=== PATIENT | male | born 1960 ===

== ENCOUNTER 2017-02-19 14:17 | Inpatient (IN) | payer MEDICAID, OTHER ==
[2017-02-19] MEDS ORDERED: Sodium Chloride 0.9% 1,000 ML IV STA (14:51)
[2017-02-19 15:19] LABS: BASO % 0.1 % (0.0-2.0); EOS % 0.2 % (0.0-4.0); HEMOGLOBIN 14.9 g/dL (12.0-18.0); LYMPH # 1.6 K/uL (1.0-4.3); LYMPH % 11.2 % (20.0-40.0); MEAN CELL VOLUME 94.5 fl (80.0-94.0); MEAN CORPUSCULAR HEMOGLOBIN 32.4 pg (27.0-31.0); MEAN CORPUSCULAR HGB CONC 34.3 g/dL (33.0-37.0); MEAN PLATELET VOLUME 8.4 fl (7.2-11.7); MONO # 0.8 K/uL (0.0-0.8); MONO % 5.8 % (0.0-10.0); NEUT # 11.6 K/uL (1.8-7.0); NEUT % 82.7 % (50.0-75.0); NRBC % 0.1 % (0.0-0.0); RBC 4.6 Mil/uL (4.40-5.90); RED CELL DISTRIBUTION WIDTH 13.2 % (11.5-14.5)
[2017-02-19 15:37] LABS: ALB/GLOB RATIO 1.2 (1.0-2.1); ALBUMIN 4.2 g/dL (3.5-5.0); ALT/SGPT 53 U/L (21-72); AST/SGOT 27 U/L (17-59); BLOOD UREA NITROGEN 19 mg/dl (9-20); CALCIUM 9.6 mg/dL (8.4-10.2); GFR AFRICAN-AMERICAN > 60; GFR NON-AFRICAN AMERICAN > 60
[2017-02-19] MEDS ORDERED: Sodium Chloride 0.9% 50 ML IV ONE (15:59)
[2017-02-19] MEDS ORDERED: Iohexol 300 100 ML IJ ONE (15:59)
--- NOTE | 2017-02-19 16:54 | ED PDOC ---
HPI: General Adult Time Seen by Provider: 02/19/17 14:32 Chief Complaint (Nursing): Hip Pain Chief Complaint (Provider): groin pain History Per: Patient, Family Additional Complaint(s): 56yo M in ED for c/o groin pain x 5 days with difficulty with urination-states that he has pain and dec in urination daily and with some pain with BM. Pt denies fever but admits to chills. Pt denies hematuira, blood in stool nausea vomiting. denies PSA testing or prostate exam denies back pain. surgical hx is removal of gallbladder. Past Medical History Reviewed: Historical Data, Nursing Documentation, Vital Signs Vital Signs: Last Vital Signs Temp 98.2 F 02/19/17 14:22 Pulse 88 02/19/17 16:57 Resp 14 02/19/17 16:57 BP 132/77 02/19/17 16:57 Pulse Ox 98 02/19/17 17:48 - Medical History PMH: No Chronic Diseases - Surgical History Surgical History: Cholecystectomy - Family History Family History: States: No Known Family Hx - Home Medications Home Medications: Ambulatory Orders Medication Instructions Recorded Diclofenac Sodium [Voltaren] 75 mg PO BID 02/19/17 tiZANidine [Zanaflex] 4 mg pe PO HS 02/19/17 - Allergies Allergies/Adverse Reactions: Allergies Allergy/AdvReac Type Severity Reaction Status Date / Time No Known Allergies Allergy Verified 02/19/17 14:22 Review of Systems ROS Statement: Except As Marked, All Systems Reviewed And Found Negative Constitutional: Positive for: Chills. Negative for: Fever Respiratory: Negative for: Cough, Shortness of Breath Gastrointestinal: Positive for: Abdominal Pain. Negative for: Nausea, Vomiting Genitourinary Male: Positive for: Dysuria Physical Exam - Reviewed Nursing Documentation Reviewed: Yes Vital Signs Reviewed: Yes - Physical Exam Appears: Positive for: Well, Non-toxic, No Acute Distress Skin: Positive for: Normal Color, Warm, DRY Cardiovascular/Chest: Positive for: Regular Rate, Rhythm Respiratory: Positive for: CNT, Normal Breath Sounds Gastrointestinal/Abdominal: Positive for: Normal Exam, Bowel Sounds, Soft. Negative for: Tenderness Back: Positive for: Normal Inspection. Negative for: L CVA Tenderness, R CVA Tenderness Rectal: Positive for: Rectal Tone Is: (intact), Tenderness (tender to pernial area, mass noted on palpation of perineal area. no enlarged prostate noted in rectum ). Negative for: Black Stool, Blood Streaked Stool, Hemorrhoids Extremity: Positive for: Normal ROM Neurologic/Psych: Positive for: Alert, Oriented - Laboratory Results Result Diagrams: 02/19/17 15:00 02/19/17 15:00 - ECG O2 Sat by Pulse Oximetry: 98 - Progress ED Course And Treament: pt given NS fluids, morphine for pain control and CT scan r/o prostate mass vs prostatitis. cbc/cmp CT scan: IMPRESSION: 1. An 8.5 x 3.5 x 3.7 cm fluid collection with subtle peripheral enhancement centered in the right side of the base of the penis and the adjacent perineum is most consistent with an abscess. Differential diagnosis also includes superimposed infection or inflammation of an underlying abnormality (e.g., lymphocele, congenital cyst). No air in the soft tissues to indicate necrotizing fasciitis. Mild surrounding fat stranding extends superiorly into the deep left hemipelvis to the sciatic notch and the mid to lower presacral space. 2. Moderate amount of gas and stool in the colon. 3. Diffuse fatty infiltration of the liver. 4. Additional non-acute findings as described above mary ellen made aware. urology consulted-Robert Manning consult placed as an order:Umberto Holland Hospitalist made aware-MD Kavita will accept pt Surgery consulted-residents made aware will come see pt. pt started on vancomycin/unaysn pt will get ABG with lactate due to elevated BS and ketones in urine. BS rise may be related to acute infection or newly dx DM. Medical Decision Making Medical Decision Making: PT meets sepsis criteria will be admitted for elevated BS and abscess. Disposition - Clinical Impression Clinical Impression: Perianal abscess - Patient ED Disposition Is Patient to be Admitted: Yes - Disposition Disposition Time: 17:48 Condition: FAIR Forms: [employer] (Slovak) - Pt Status Changed To: Hospital Disposition Of: Inpatient - Admit Certification Admit to Inpatient:: After my assessment, the patient will require hospitalization for at least two midnights. This is because of the severity of symptoms shown, intensity of services needed, and/or the medical risk in this patient being treated as an outpatient. - POA Present On Arrival: Poor Glycemic Control
[2017-02-19 17:05] LABS: URINE BILIRUBIN NEGATIVE (NEGATIVE); URINE BLOOD NEGATIVE (NEGATIVE); URINE CLARITY CLEAR (Clear); URINE COLOR YELLOW (YELLOW); URINE GLUCOSE (UA) >=500 mg/dL (Normal); URINE LEUKOCYTE ESTERASE NEG Leu/uL (Negative); URINE NITRATE NEGATIVE (NEGATIVE); URINE PROTEIN NEGATIVE (NEGATIVE); URINE UROBILINOGEN 0.2-1.0 mg/dL (0.2-1.0)
[2017-02-19] MEDS ORDERED: Ciprofloxacin 400mg/200ml D5W 400 MG/200 ML BAG IVPB STA (17:26)
[2017-02-19] MEDS ORDERED: metroNIDAZOLE 500mg/100ml NS 100 ML IVPB STA (17:26)
[2017-02-19] MEDS ORDERED: Ciprofloxacin 400mg/200ml D5W 0 MG/0 ML BAG IVPB ONE (17:36)
[2017-02-19] MEDS ORDERED: metroNIDAZOLE 500mg/100ml NS 0 ML IVPB ONE (17:36)
[2017-02-19] MEDS ORDERED: Ampicillin/Sulbactam 1.5 GM in Sodium Chloride 0.9% 100 ML IVPB STA (17:42)
[2017-02-19 17:45] LABS: ABG ALLEN TEST YES; ARTERIAL BLOOD GAS HCO3 23.6 mmol/L (21-28); ARTERIAL BLOOD GAS PCO2 34 mm/Hg (35-45); ARTERIAL BLOOD GAS PH 7.42 (7.35-7.45); ARTERIAL BLOOD GAS PO2 92 mm/Hg (80-100); ARTERIAL BLOOD GAS TCO2 23.1 mmol/L (22-28)
[2017-02-19] MEDS ORDERED: Vancomycin 1 g Inj ONE (17:45)
[2017-02-19] MEDS ORDERED: Piperacillin/Tazobact 3.375 GM in Sodium Chloride 0.9% 100 ML IVPB SCH (18:33)
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
[2017-02-19] MEDS ORDERED: Sodium Chloride 0.9% 1,000 ML IV SCH (18:45)
[2017-02-19] MEDS ORDERED: metroNIDAZOLE 500mg/100ml NS 100 ML IVPB SCH (18:45)
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
--- NOTE | 2017-02-19 20:33 | CP.PCM.PN ---
Subjective - Date & Time of Evaluation Date of Evaluation: 02/19/17 Time of Evaluation: 20:25 - Subjective Subjective: I D NOTE(INITIAL) WAS NOT INFORMED BY ER OF CONSULT THE HOSPITALIST() INFORMED ME OF CONSULT. DISCUSSED PATIENT AND CLINICAL SITUATION c HER. Rx c ZOSYN/FLAGYL/DOXYCYCLINE CHLAMYDIA/GC RNA ORDERED AWAIT ROUTINE CULTURES Objective - Vital Signs/Intake and Output Vital Signs (last 24 hours): Temp Pulse Resp BP Pulse Ox 98.9 F 84 20 176/95 H 99 02/19/17 19:41 02/19/17 19:41 02/19/17 19:41 02/19/17 19:41 02/19/17 19:41 - Medications Medications: Current Medications Doxycycline Hyclate 100 mg/ (Sodium Chloride) 100 mls @ 100 mls/hr IVPB Q12 [facility] Sodium Chloride (Sodium Chloride 0.9%) 1,000 mls @ 150 mls/hr IV .Q6H40M [facility] Stop: 02/20/17 18:44 Metronidazole (Flagyl 500mg/100ml Ns) 100 mls @ 100 mls/hr IVPB Q8 [facility] Piperacillin Sod/Tazobactam (Sod 3.375 gm/ Sodium Chloride) 100 mls @ 100 mls/ hr IVPB Q6 [facility] Insulin Human Lispro (Humalog) 0 units SC ACHS [facility] PRN Reason: Protocol Morphine Sulfate (Morphine) 4 mg IVP Q4 PRN PRN Reason: Pain, severe (8-10)
[2017-02-19] MEDS: Sodium Chloride 0.9% 1,000 ML IV SCH (21:01)
[2017-02-19] MEDS: Insulin Lispro (humaLOG) 100 Units/ml Inj SC SCH (23:14)
[2017-02-20] MEDS: Sodium Chloride 0.9% 1,000 ML IV SCH ×2 (02:25→09:05)
[2017-02-20] MEDS: Piperacillin/Tazobact 3.375 GM in Sodium Chloride 0.9% 100 ML IVPB SCH ×4 (04:44→21:48)
[2017-02-20 07:20] LABS: ALB/GLOB RATIO 1.2 (1.0-2.1); ALBUMIN 3.7 g/dL (3.5-5.0); ALT/SGPT 67 U/L (21-72); AST/SGOT 36 U/L (17-59); BLOOD UREA NITROGEN 18 mg/dl (9-20); CALCIUM 8.8 mg/dL (8.4-10.2); GFR AFRICAN-AMERICAN > 60; GFR NON-AFRICAN AMERICAN > 60
[2017-02-20 07:26] LABS: BASO % 0.2 % (0.0-2.0); EOS % 0.3 % (0.0-4.0); HEMOGLOBIN 13.3 g/dL (12.0-18.0); LYMPH # 1.3 K/uL (1.0-4.3); LYMPH % 11.3 % (20.0-40.0); MEAN CELL VOLUME 95.1 fl (80.0-94.0); MEAN CORPUSCULAR HEMOGLOBIN 32.1 pg (27.0-31.0); MEAN CORPUSCULAR HGB CONC 33.8 g/dL (33.0-37.0); MEAN PLATELET VOLUME 8.3 fl (7.2-11.7); MONO # 0.8 K/uL (0.0-0.8); MONO % 6.7 % (0.0-10.0); NEUT # 9.7 K/uL (1.8-7.0); NEUT % 81.5 % (50.0-75.0); RBC 4.14 Mil/uL (4.40-5.90); RED CELL DISTRIBUTION WIDTH 13.1 % (11.5-14.5); WHITE BLOOD COUNT 11.9 K/uL (4.8-10.8)
[2017-02-20 07:32] LABS: INR 1.3 (0.9-1.2); PARTIAL THROMBOPLASTIN TIME 29.5 Seconds (25.6-37.1); PROTHROMBIN TIME 13.7 Seconds (9.8-13.1)
--- NOTE | 2017-02-20 07:40 | CARD ---
APPROVED REPORT EKG Measurement Heart [id number] <Conclusion> Normal sinus rhythm Normal ECG
--- NOTE | 2017-02-20 08:48 | CT ---
PROCEDURE: CT Abdomen and Pelvis with contrast HISTORY: groin pain COMPARISON: None. TECHNIQUE: Contrast dose: 98 cc Omnipaque. Axial and reformatted coronal and sagittal CT images of the abdomen and pelvis were obtained after IV contrast administration. Radiation dose: Total exam DLP = 1313.86 mGy-cm. This CT exam was performed using one or more of the following dose reduction techniques: Automated exposure control, adjustment of the mA and/or kV according to patient size, and/or use of iterative reconstruction technique. FINDINGS: LOWER THORAX: Unremarkable. LIVER: Mild hepatic steatosis is noted. No gross lesion or ductal dilatation. GALLBLADDER AND BILE DUCTS: Status post cholecystectomy. PANCREAS: Unremarkable. No gross lesion or ductal dilatation. SPLEEN: Unremarkable. ADRENALS: Unremarkable. No mass. KIDNEYS AND URETERS: Unremarkable. No hydronephrosis. No solid mass. VASCULATURE: Unremarkable. No aortic aneurysm. BOWEL: Unremarkable. No obstruction. No gross mural thickening. APPENDIX: Normal appendix. PERITONEUM: Unremarkable. No free fluid. No free air. LYMPH NODES: Unremarkable. No enlarged lymph nodes. BLADDER: Unremarkable. REPRODUCTIVE: There is tubular shaped fluid collection at the left aspect of the base of the penis extending to the left perianal and left perineum measures approximately 8.5 x 3.5 x 3.7 centimeter. There is thin enhancing wall of this collection. The possibility of abscess formation should be considered. BONES: No acute fracture. OTHER FINDINGS: Fat stranding and possible soft tissue edema at the pre sacral region in the lower pelvis slightly more prominent in the left side. IMPRESSION: Fluid collection at the left aspect of the base of the penis extending to the adjacent perineum may represents abscess formation. Mild stranding and possible soft tissue swelling or edema at the pre sacral region in the lower aspect of the pelvis more prominent in the left side of uncertain etiology. No evidence of significant lymphadenopathy. Preliminary report was submitted by [facility].
[2017-02-20] MEDS: metroNIDAZOLE 500mg/100ml NS 100 ML IVPB SCH ×2 (08:52→16:26)
[2017-02-20] MEDS ORDERED: Chlorhexidine Gluconate 1 APPL/PKT TP ONE (09:46)
[2017-02-20] MEDS: Insulin Lispro (humaLOG) 100 Units/ml Inj SC SCH ×3 (11:30→21:47)
--- NOTE | 2017-02-20 11:37 | CP.PCM.PN ---
Subjective - Date & Time of Evaluation Date of Evaluation: 02/20/17 Time of Evaluation: 10:00 - Subjective Subjective: Patient was seen and evaluated at bedside, appeared to be in mild discomfort. Stated that the pain medication was helping relieve the pain, but otherwise he feels the same as before. Stated that he waiting for the abscess to be "cut out. " Pt was NPO for OR this morning. Denied chest pain, sob, abdominal pain, leg/ calf pain/swelling. Pt was taken to OR today, 50cc of fluid drained from abscess. Objective - Vital Signs/Intake and Output Vital Signs (last 24 hours): Temp Pulse Resp BP Pulse Ox 98.8 F 82 20 154/78 H 98 02/20/17 08:00 02/20/17 08:00 02/20/17 08:00 02/20/17 08:00 02/20/17 08:00 - Medications Medications: Current Medications Doxycycline Hyclate 100 mg/ (Sodium Chloride) 100 mls @ 100 mls/hr IVPB Q12 [facility] Last Admin: 02/20/17 08:53 Dose: 100 mls/hr Sodium Chloride (Sodium Chloride 0.9%) 1,000 mls @ 150 mls/hr IV .Q6H40M [facility] Stop: 02/20/17 18:44 Last Admin: 02/20/17 09:05 Dose: 150 mls/hr Piperacillin Sod/Tazobactam (Sod 3.375 gm/ Sodium Chloride) 100 mls @ 100 mls/ hr IVPB Q6 [facility] Last Admin: 02/20/17 09:00 Dose: 100 mls/hr Metronidazole (Flagyl 500mg/100ml Ns) 100 mls @ 100 mls/hr IVPB Q8 [facility] Last Admin: 02/20/17 08:52 Dose: 100 mls/hr Insulin Human Lispro (Humalog) 0 units SC ACHS [facility] PRN Reason: Protocol Last Admin: 02/19/17 23:14 Dose: Not Given Morphine Sulfate (Morphine) 4 mg IVP Q4 PRN PRN Reason: Pain, severe (8-10) Last Admin: 02/20/17 08:59 Dose: 4 mg - Labs Labs: 02/20/17 07:05 02/20/17 07:05 PT 13.7 Seconds (9.8-13.1) H 02/20/17 07:05 INR 1.3 (0.9-1.2) H 02/20/17 07:05 APTT 29.5 Seconds (25.6-37.1) 02/20/17 07:05 - Constitutional Appears: No Acute Distress, Other (mild discomfort) - Head Exam Head Exam: NORMAL INSPECTION - Eye Exam Eye Exam: EOMI, PERRL - ENT Exam ENT Exam: Mucous Membranes Moist - Respiratory Exam Respiratory Exam: Clear to Ausculation Bilateral, NORMAL BREATHING PATTERN - Cardiovascular Exam Cardiovascular Exam: REGULAR RHYTHM, +S1, +S2 - GI/Abdominal Exam GI & Abdominal Exam: Soft, Normal Bowel Sounds. absent: Tenderness - Exam Exam: absent: Scrotal Swelling External exam: Swelling Additional comments: perineal tenderness - Extremities Exam Extremities Exam: Normal Capillary Refill, Normal Inspection. absent: Calf Tenderness, Pedal Edema - Back Exam Back Exam: NORMAL INSPECTION - Neurological Exam Neurological Exam: Alert, Awake, Oriented x3 - Psychiatric Exam Psychiatric exam: Normal Affect, Normal Mood - Skin Skin Exam: Intact, Warm Assessment and Plan - Assessment and Plan (Free Text) Assessment: This is a 56 yo M with no known PMH who presented to the ED due to groin pain, and was found to have a perineal abscess on CT, as well as new onset type 2 DM. Surgery- OR today. Plan: 1. Sepsis due to perineal abscess/cellulitis -WBC on admission 14.0, today 11.9 -Heart rate on admission 102; has not been above 90 since then -Afebrile -Blood/urine culture: collected and pending -Urinalysis clean -ID consult: Dr. Holland recommended start IV zosyn, flagyl, doxycycline, and test for GC/Chlamydia 2. Perineal abscess/cellulitis, s/p I&D -CT: tubular shaped fluid collection at left aspect of base of the penis extending to the left perineal and left perineum, measures approximately 8.5x3.5x3.7 cm. There is thin enhancing wall in his collection. Possibility of abscess formation. -Urology consult- Dr. Manning stated this is a surgical case and recommended surgery consult -Surgery consult- Dr. Johansen- recommended to continue with IV antibiotics, make NPO and plan for surgery this am -Pain control with morphine -was NPO- for OR today -s/p I&D performed today- 50cc of fluid drained from perineal abscess, no drain in place, wound cultures sent 3. New onset Diabetes Mellitus, Type 2 -Accucheks ACHS -coverage scale -HbA1c 9.7 -Start glipizide 10mg PO in the morning -F/u lipid profile 4. DVT prophylaxis -SCDs for now -Start lovenox tomorrow
--- NOTE | 2017-02-20 11:46 | RAD ---
HISTORY: pre op eval COMPARISON: No prior. TECHNIQUE: Chest PA and lateral FINDINGS: LUNGS: No active pulmonary disease. PLEURA: No significant pleural effusion identified. No pneumothorax apparent. CARDIOVASCULAR: No radiographic findings to suggest acute or significant cardiovascular disease. OSSEOUS STRUCTURES: No significant abnormalities. VISUALIZED UPPER ABDOMEN: Normal. OTHER FINDINGS: None. IMPRESSION: No active disease.
[2017-02-20] MEDS ORDERED: Propofol 10 mg/ml Inj (20 ML) ONE (12:05)
[2017-02-20] MEDS ORDERED: Lidocaine 4% (Laryng-O-Jet) Kit MM ONE (12:07)
[2017-02-20] MEDS ORDERED: Dexamethasone 4 mg/1 ml ONE (12:07)
[2017-02-20] MEDS ORDERED: Morphine 4 MG/ML VIAL IVP STA (12:43)
[2017-02-20] MEDS ORDERED: Succinylcholine 200 mg/10 ml Inj IV ONE (13:29)
[2017-02-20] MEDS ORDERED: Lidocaine 1% Inj (20ml) ONE (13:30)
[2017-02-20] MEDS ORDERED: Bupivacaine 0.5% Inj(30mL) ONE (13:30)
--- NOTE | 2017-02-20 13:30 | CON ---
DATE: 02/20/2017 COMPREHENSIVE UROLOGIC CONSULTATION TIME OF CONSULTATION: Roughly 10.23 a.m. DIAGNOSIS: Perineal abscess. BRIEF HISTORY: The patient is a 56-year-old male from [place] who presents to [facility] ([facility] Emergency Room with complaint of some perineal pain. Abdominal pelvic CT in the ER on 02/19/2017 showed a tubular shaped fluid collection at the left aspect of the base of the penis extending to the left perianal and left perineum which measured about 8.5 x 3.5 x 3.7 cm. There was a thin enhancing wall of this collection. The possibility of abscess formation should be considered. Kidneys were normal. There was no hydronephrosis and no solid mass. The bladder was also unremarkable. The patient denies any prior history of any kidney disease or kidney stones. He has no history of any voiding problems. No dysuria, gross hematuria, renal colic, or abdominal pain. His only pain is in the perineum. He has no history of any sexual transmitted diseases. This swelling and pain that he had in the perineum, he has had for about 3 days. SOCIAL HISTORY: He consumes a very small amount of alcohol just socially. No tobacco use. ALLERGIES: NO KNOWN ALLERGIES TO ANY MEDICATION. FAMILY HISTORY: Noncontributory. PHYSICAL EXAMINATION: GENERAL: Today, the patient is well-developed, well-nourished, male, he is alert, he is oriented. HEENT: Grossly within normal limits. NECK: Supple. Thyroid not palpable. ABDOMEN: Soft, nondistended, nontender. No CVA tenderness, no suprapubic tenderness. GENITALIA: The patient is noncircumcised with a normal glans meatus without any rashes or lesions visualized. No penile plaques are palpated, no penile induration or masses are palpated or noted. His scrotum is completely normal. There is no indurations, no cellulitis, no scrotal masses. Testes are down bilaterally, nontender without any masses palpated. RECTAL: Normal rectal tone without fluctuance or masses. Prostate is average size, smooth, symmetrical, nontender without nodules or indurations with palpable median sulcus. Very difficult to palpate the mass in the perineum and currently on pain medications which includes IV morphine. The patient currently has no pain at this time, and he says he is markedly improved since his admission on IV antibiotics. There is no lesions visualized in the perineum or perianal area. The penis and scrotum clinically appear to be not involved at this time. LABORATORY DATA: The patient's laboratory evaluation on admission showed a WBC count of over 14,000 and currently he is on IV antibiotics. He remains afebrile. His temperature is 98.8, and his CBC shows a WBC count of 11.9 which is down from 14,000 on IV antibiotics. His hemoglobin is 13.3, hematocrit 39.4, and platelet count of 178,000. His BUN and creatinine are 18 and 0.7 respectively. His sodium is 138, potassium 3.9, chloride 104, CO2 is 21, glucose is 214. The patient is currently being also evaluated by Dr. Johansen, general surgery. Additional findings on the CAT scan also shows some fat stranding and possible soft tissue edema at the presacral region in the lower pelvis slightly more prominent on the left side. His urinalysis on 02/19/2017 showed the color was yellow, cloudy, it was clear, pH of 6.0, specific gravity 1.060, protein was negative, glucose was greater than 500, ketones were 20, blood nitrate bilirubin were all negative. Leukocyte esterase was negative. There was 1 rbc's per high-power field and less than 1 wbc's per high-power field indicating a relatively normal urinalysis. DIAGNOSTIC IMPRESSION: At this time is perineal abscess mostly on the left side, on CT. PLAN: For this patient is as per Dr. Johansen, general surgery. Observation regarding urology at this time. Valdo Manning MD [facility]
[2017-02-20] MEDS ORDERED: Lactated Ringer's 1,000 ML IV ONE ×2 (13:50→16:05)
[2017-02-20] MEDS ORDERED: Rocuronium 10 mg/ml (5 ml) ONE (14:06)
[2017-02-20] MEDS ORDERED: Morphine 1 mg/ml preservative-free Inj(Duramorph) ONE (14:10)
[2017-02-20] MEDS ORDERED: Desflurane Inhalation Anesthetic Liq (240 ml) ONE (14:27)
[2017-02-20] MEDS ORDERED: Neostigmine Methylsulfate 2 MG/2 ML ML IV ONE (14:27)
[2017-02-20] MEDS ORDERED: Neostigmine Methylsulfate 3mg/3ml Syringe IV ONE (14:27)
[2017-02-20] MEDS ORDERED: Lactated Ringer's 1,000 ML IV SCH (14:51)
[2017-02-20] MEDS ORDERED: HYDROmorphone 0.5 mg/0.5 ml ISec IVP PRN (14:51)
--- NOTE | 2017-02-20 14:51 | PCM.SURG1 ---
Surgeon's Initial Post Op Note - Surgeon's Notes Surgeon: Dr. [employer] Field Technician: Kamran Ratliff PGY 2, Mercedes PGY1 Type of Anesthesia: General Endo Pre-Operative Diagnosis: Perineal abscess R Operative Findings: R perineal abscess 50cc abscess Post-Operative Diagnosis: Same Operation Performed: Incision and drainage of R perineal abscess Specimen/Specimens Removed: abscess 50cc Estimated Blood Loss: EBL {In ML}: 5 Blood Products Given: N/A Drains Used: No Drains Post-Op Condition: Good Date of Surgery/Procedure: 02/20/17 Time of Surgery/Procedure: 14:51
--- NOTE | 2017-02-20 15:27 | OP ---
PREOPERATIVE DIAGNOSIS: Perianal abscess. POSTOPERATIVE DIAGNOSIS: Perianal abscess. PROCEDURE: Incision and drainage of the perianal abscess. SURGEON: Dr. Hardy. INGREDIENT MIXER: Dr. Ratliff. ANESTHESIA: General, endotracheal intubation. IV FLUIDS: Crystalloids. ESTIMATED BLOOD LOSS: 5 mL. INTRAOPERATIVE FINDINGS: Drained approximately 50 ms of purulent material. SPECIMEN: Wound cultures. BRIEF HISTORY: The patient is a very pleasant 56-year-old gentleman who presented to the hospital complaining of perineal pain and upon further investigation on a CAT scan the patient was found to have elevated white blood cell count as well as cath finding significant for perianal abscess. All the risks and benefits of the procedure were explained to the patient and with the patient having a full understanding of all the risks and benefits involved informed consent was obtained and the patient was taken to the operating room for above stated procedure. PROCEDURE: The patient was brought into the operating room and placed supine on operating table. After successful induction of anesthesia and successful endotracheal intubation by the anesthesia team, the patient was placed in a lithotomy position. Subsequent to that the patient's perianal area was prepped with Betadine and draped in a standard surgical fashion. Prior to the beginning of the procedure, a time-out was called in the room and everyone in the room were in agreement. Prior to the beginning of the procedure, digital rectal examination was performed and I could not appreciate any palpable masses. Subsequent to that using 15 blade scalpel knife approximately 2 cm incision was made right next to the anus at the area of the left buttocks and subsequent to that a purulent material was expressed. Wound cultures were obtained and then using blunt dissection with a finger all the loculations of the abscess cavity were broken down and we drained approximately 50 mL of purulent material. At that point in time, the abscess cavity was copiously irrigated with sterile saline and a fluid was suctioned out and abscess cavity was packed with 1 inch packing. At that point in time, the patient's perianal are was washed and dried and clean dressing of 4x4's and tape were applied to the incision site. The patient was successfully extubated by the anesthesia team, transferred to the stretcher and taken to the recovery room in a stable condition. At the end of the procedure all instrument counts, sponges, were correct. Kvng Hardy MD [facility] # [id number]
[2017-02-20] MEDS ORDERED: Piperacillin/Tazobact 3.375 gm Inj IVPB ONE (16:00)
--- NOTE | 2017-02-20 18:07 | CP.PCM.PN ---
Subjective - Date & Time of Evaluation Date of Evaluation: 02/20/17 Time of Evaluation: 18:00 - Subjective Subjective: I D NOTE PATIENT SEEN POST OP AWAIT TODAYS SURGICAL CULTURE RESULTS CONTINUE SAME RX UNTIL RESULTS ARE AVAILABLE FULL CONSULT DICTATED Objective - Vital Signs/Intake and Output Vital Signs (last 24 hours): Temp Pulse Resp BP Pulse Ox 97.9 F 84 20 137/82 97 02/20/17 16:20 02/20/17 17:16 02/20/17 16:20 02/20/17 17:16 02/20/17 16:20 Intake and Output: 02/20/17 02/20/17 06:59 18:59 Intake Total 800 Balance 800 - Medications Medications: Current Medications Glipizide (Glucotrol) 10 mg PO ACB [facility] Doxycycline Hyclate 100 mg/ (Sodium Chloride) 100 mls @ 100 mls/hr IVPB Q12 [facility] Last Admin: 02/20/17 08:53 Dose: 100 mls/hr Sodium Chloride (Sodium Chloride 0.9%) 1,000 mls @ 150 mls/hr IV .Q6H40M [facility] Stop: 02/20/17 18:44 Last Admin: 02/20/17 09:05 Dose: 150 mls/hr Piperacillin Sod/Tazobactam (Sod 3.375 gm/ Sodium Chloride) 100 mls @ 100 mls/ hr IVPB Q6 [facility] Last Admin: 02/20/17 16:27 Dose: Not Given Metronidazole (Flagyl 500mg/100ml Ns) 100 mls @ 100 mls/hr IVPB Q8 [facility] Last Admin: 02/20/17 16:26 Dose: 100 mls/hr Lactated Ringer's (Lactated Ringer's) 1,000 mls @ 100 mls/hr IV .Q10H [facility] Insulin Human Lispro (Humalog) 0 units SC ACHS [facility] PRN Reason: Protocol Last Admin: 02/19/17 23:14 Dose: Not Given Morphine Sulfate (Morphine) 4 mg IVP Q4 PRN PRN Reason: Pain, severe (8-10) Last Admin: 02/20/17 08:59 Dose: 4 mg Oxycodone/Acetaminophen (Percocet 5/325 Mg Tab) 2 tab PO Q4 PRN PRN Reason: Pain, moderate (4-7) Stop: 02/23/17 14:55 - Labs Labs: 02/20/17 07:05 02/20/17 07:05 PT 13.7 Seconds (9.8-13.1) H 02/20/17 07:05 INR 1.3 (0.9-1.2) H 02/20/17 07:05 APTT 29.5 Seconds (25.6-37.1) 02/20/17 07:05
[2017-02-21] MEDS: metroNIDAZOLE 500mg/100ml NS 100 ML IVPB SCH ×3 (00:07→16:12)
[2017-02-21] MEDS: Piperacillin/Tazobact 3.375 GM in Sodium Chloride 0.9% 100 ML IVPB SCH ×4 (03:08→22:00)
[2017-02-21] MEDS: Oxycodone/Acetaminophen 5/325 mg Tab PO PRN ×2 (05:46→20:18)
[2017-02-21 07:01] LABS: HEMOGLOBIN 12.1 g/dL (12.0-18.0); LYMPH % 9.5 % (20.0-40.0); MEAN CELL VOLUME 96.6 fl (80.0-94.0); MEAN CORPUSCULAR HEMOGLOBIN 32.6 pg (27.0-31.0); MEAN CORPUSCULAR HGB CONC 33.8 g/dL (33.0-37.0); MEAN PLATELET VOLUME 7.4 fl (7.2-11.7); MONO # 0.5 K/uL (0.0-0.8); MONO % 4.8 % (0.0-10.0); NEUT # 8.9 K/uL (1.8-7.0); NEUT % 85.7 % (50.0-75.0); PLATELET COUNT 171 K/uL (130-400); RED CELL DISTRIBUTION WIDTH 12.8 % (11.5-14.5); WHITE BLOOD COUNT 10.4 K/uL (4.8-10.8)
[2017-02-21 07:09] LABS: ALB/GLOB RATIO 1.1 (1.0-2.1); ALBUMIN 2.9 g/dL (3.5-5.0); ALT/SGPT 64 U/L (21-72); AST/SGOT 27 U/L (17-59); BLOOD UREA NITROGEN 22 mg/dl (9-20); CALCIUM 7.3 mg/dL (8.4-10.2); GFR AFRICAN-AMERICAN > 60; GFR NON-AFRICAN AMERICAN > 60; HDL CHOLESTEROL 27 MG/DL (30-70)
[2017-02-21 07:20] LABS: LDL CHOLESTEROL 68 mg/dL (0-129)
--- NOTE | 2017-02-21 07:48 | CP.PCM.PN ---
<Kamran Ratliff - Last Filed: 02/21/17 07:46> Subjective - Date & Time of Evaluation Date of Evaluation: 02/21/17 Time of Evaluation: 07:46 - Subjective Subjective: Surgery for Dr. Hardy Pt s&e. Pt had incision and drainage yesterday and tolerated it well. Denies F/C /N/V/D/CP/SOB. Tolerating diet. Pain improved. Packing removed today. + void, + amb Objective - Vital Signs/Intake and Output Vital Signs (last 24 hours): Temp Pulse Resp BP Pulse Ox 98 F 68 20 120/75 98 02/21/17 05:09 02/21/17 05:09 02/21/17 05:09 02/21/17 05:09 02/21/17 05:09 - Medications Medications: Current Medications Glipizide (Glucotrol) 10 mg PO ACB [facility] Last Admin: 02/21/17 06:46 Dose: 10 mg Doxycycline Hyclate 100 mg/ (Sodium Chloride) 100 mls @ 100 mls/hr IVPB Q12 [facility] Last Admin: 02/20/17 20:45 Dose: 100 mls/hr Piperacillin Sod/Tazobactam (Sod 3.375 gm/ Sodium Chloride) 100 mls @ 100 mls/ hr IVPB Q6 [facility] Last Admin: 02/21/17 03:08 Dose: 100 mls/hr Metronidazole (Flagyl 500mg/100ml Ns) 100 mls @ 100 mls/hr IVPB Q8 [facility] Last Admin: 02/21/17 00:07 Dose: 100 mls/hr Insulin Human Lispro (Humalog) 0 units SC ACHS [facility] PRN Reason: Protocol Last Admin: 02/20/17 21:47 Dose: Not Given Morphine Sulfate (Morphine) 4 mg IVP Q4 PRN PRN Reason: Pain, severe (8-10) Last Admin: 02/21/17 07:24 Dose: 4 mg Oxycodone/Acetaminophen (Percocet 5/325 Mg Tab) 2 tab PO Q4 PRN PRN Reason: Pain, moderate (4-7) Stop: 02/23/17 14:55 Last Admin: 02/21/17 05:46 Dose: 2 tab - Labs Labs: 02/21/17 06:00 02/21/17 06:00 PT 13.7 Seconds (9.8-13.1) H 02/20/17 07:05 INR 1.3 (0.9-1.2) H 02/20/17 07:05 APTT 29.5 Seconds (25.6-37.1) 02/20/17 07:05 - Constitutional Appears: No Acute Distress - Head Exam Head Exam: ATRAUMATIC, NORMAL INSPECTION, NORMOCEPHALIC - Eye Exam Eye Exam: EOMI, Normal appearance, PERRL Pupil Exam: NORMAL ACCOMODATION, PERRL - ENT Exam ENT Exam: Mucous Membranes Moist, Normal Exam - Neck Exam Neck Exam: Full ROM, Normal Inspection. absent: Lymphadenopathy - Respiratory Exam Respiratory Exam: Clear to Ausculation Bilateral, NORMAL BREATHING PATTERN - Cardiovascular Exam Cardiovascular Exam: REGULAR RHYTHM, +S1, +S2. absent: Murmur - GI/Abdominal Exam GI & Abdominal Exam: Soft, Normal Bowel Sounds. absent: Tenderness - Rectal Exam Rectal Exam: NORMAL INSPECTION - Exam Exam: Circumcision, Scrotal Swelling. absent: Testicular Tenderness, Uretheral Discharge External exam: Swelling Additional comments: Scrotum has 3cm incision. 5cm deep. Draining seropulurent fluids. MIld erythema. Swelling improved. - Extremities Exam Extremities Exam: Full ROM, Normal Capillary Refill, Normal Inspection. absent : Joint Swelling, Pedal Edema - Back Exam Back Exam: NORMAL INSPECTION - Neurological Exam Neurological Exam: Alert, Awake, CN II-XII Intact, Normal Gait, Oriented x3 - Psychiatric Exam Psychiatric exam: Normal Affect, Normal Mood - Skin Skin Exam: Erythema, Warm Assessment and Plan - Assessment and Plan (Free Text) Assessment: Incision and drainage of R scrotum/perineum POD 1 -Ok to DC for surgical standpoint -F/u at Dr. Hardy 's office in 1 week -Blood sugar control - OK to take shower tomorrow. Will DW attending . <Kvng Hardy - Last Filed: 02/21/17 10:20> Subjective - Date & Time of Evaluation Time of Evaluation: 10:00 - Subjective Subjective: Patient was seen and examined at the bedside. Objective - Vital Signs/Intake and Output Vital Signs (last 24 hours): Temp Pulse Resp BP Pulse Ox 98 F 61 20 142/78 98 02/21/17 08:00 02/21/17 09:00 02/21/17 08:00 02/21/17 08:00 02/21/17 08:00 - Medications Medications: Current Medications Glipizide (Glucotrol) 10 mg PO ACB [facility] Last Admin: 02/21/17 06:46 Dose: 10 mg Doxycycline Hyclate 100 mg/ (Sodium Chloride) 100 mls @ 100 mls/hr IVPB Q12 [facility] Last Admin: 02/21/17 08:21 Dose: 100 mls/hr Piperacillin Sod/Tazobactam (Sod 3.375 gm/ Sodium Chloride) 100 mls @ 100 mls/ hr IVPB Q6 [facility] Last Admin: 02/21/17 03:08 Dose: 100 mls/hr Metronidazole (Flagyl 500mg/100ml Ns) 100 mls @ 100 mls/hr IVPB Q8 [facility] Last Admin: 02/21/17 08:21 Dose: 100 mls/hr Insulin Human Lispro (Humalog) 0 units SC ACHS [facility] PRN Reason: Protocol Last Admin: 02/21/17 08:22 Dose: 2 units Morphine Sulfate (Morphine) 4 mg IVP Q4 PRN PRN Reason: Pain, severe (8-10) Last Admin: 02/21/17 07:24 Dose: 4 mg Oxycodone/Acetaminophen (Percocet 5/325 Mg Tab) 2 tab PO Q4 PRN PRN Reason: Pain, moderate (4-7) Stop: 02/23/17 14:55 Last Admin: 02/21/17 05:46 Dose: 2 tab - Labs Labs: 02/21/17 06:00 02/21/17 06:00 PT 13.7 Seconds (9.8-13.1) H 02/20/17 07:05 INR 1.3 (0.9-1.2) H 02/20/17 07:05 APTT 29.5 Seconds (25.6-37.1) 02/20/17 07:05 Assessment and Plan - Assessment and Plan (Free Text) Plan: - Continue IV antibiotics as per ID - Pain control - Will follow - repeat labs in am
[2017-02-21] MEDS: Insulin Lispro (humaLOG) 100 Units/ml Inj SC SCH ×4 (08:22→22:57)
[2017-02-21] MEDS ORDERED: metroNIDAZOLE 500mg/100ml NS 100 ML IVPB SCH (09:00)
[2017-02-21 09:07] LABS: ANISOCYTOSIS SLIGHT; BANDS 3 % (0-2); LARGE PLATELETS PRESENT; LYMPHOCYTE 10 % (20-50); MONOCYTE 4 % (0-10); NEUTROPHIL 83 % (42-75); PLATELET ESTIMATE NORMAL (NORMAL); TOTAL CELLS COUNTED 100
--- NOTE | 2017-02-21 09:22 | CP.PCM.PN ---
Subjective - Date & Time of Evaluation Date of Evaluation: 02/21/17 Time of Evaluation: 08:30 - Subjective Subjective: Patient was seen and evaluated in bed, appears to be in no acute distress, denies any events overnight. Pt had I&D yesterday, 50cc fluid drained and packing was placed. As per surgery, packing was removed today. Dressing in place. Pt was able to urinate without difficulty. Pt denies new onset pain, chest pain, shortness of breath, nausea, vomiting, leg/calf pain/swelling. Objective - Vital Signs/Intake and Output Vital Signs (last 24 hours): Temp Pulse Resp BP Pulse Ox 98 F 62 20 142/78 98 02/21/17 08:00 02/21/17 08:00 02/21/17 08:00 02/21/17 08:00 02/21/17 08:00 - Medications Medications: Current Medications Glipizide (Glucotrol) 10 mg PO ACB [facility] Last Admin: 02/21/17 06:46 Dose: 10 mg Doxycycline Hyclate 100 mg/ (Sodium Chloride) 100 mls @ 100 mls/hr IVPB Q12 [facility] Last Admin: 02/21/17 08:21 Dose: 100 mls/hr Piperacillin Sod/Tazobactam (Sod 3.375 gm/ Sodium Chloride) 100 mls @ 100 mls/ hr IVPB Q6 [facility] Last Admin: 02/21/17 03:08 Dose: 100 mls/hr Metronidazole (Flagyl 500mg/100ml Ns) 100 mls @ 100 mls/hr IVPB Q8 [facility] Last Admin: 02/21/17 08:21 Dose: 100 mls/hr Insulin Human Lispro (Humalog) 0 units SC ACHS [facility] PRN Reason: Protocol Last Admin: 02/21/17 08:22 Dose: 2 units Morphine Sulfate (Morphine) 4 mg IVP Q4 PRN PRN Reason: Pain, severe (8-10) Last Admin: 02/21/17 07:24 Dose: 4 mg Oxycodone/Acetaminophen (Percocet 5/325 Mg Tab) 2 tab PO Q4 PRN PRN Reason: Pain, moderate (4-7) Stop: 02/23/17 14:55 Last Admin: 02/21/17 05:46 Dose: 2 tab - Labs Labs: 02/21/17 06:00 02/21/17 06:00 PT 13.7 Seconds (9.8-13.1) H 02/20/17 07:05 INR 1.3 (0.9-1.2) H 02/20/17 07:05 APTT 29.5 Seconds (25.6-37.1) 02/20/17 07:05 - Constitutional Appears: Non-toxic, No Acute Distress - Eye Exam Eye Exam: EOMI, Normal appearance, PERRL - ENT Exam ENT Exam: Mucous Membranes Moist - Respiratory Exam Respiratory Exam: Clear to Ausculation Bilateral, NORMAL BREATHING PATTERN - Cardiovascular Exam Cardiovascular Exam: REGULAR RHYTHM, +S1, +S2 - GI/Abdominal Exam GI & Abdominal Exam: Soft, Normal Bowel Sounds. absent: Tenderness - Exam Additional comments: dressing in place over scrotal area and perenium - Extremities Exam Extremities Exam: Normal Capillary Refill, Normal Inspection. absent: Calf Tenderness, Pedal Edema - Back Exam Back Exam: NORMAL INSPECTION - Psychiatric Exam Psychiatric exam: Normal Mood - Skin Skin Exam: Dry, Normal Color, Warm Assessment and Plan - Assessment and Plan (Free Text) Assessment: This is a 56 yo M with new onset DM2 (unknown prior to admission) who presented to ED due to groin pain and swelling and was found to have perineal abscess; pt is s/p I&D where 50cc of fluid was removed, POD 1. Plan: 1. Sepsis due to perineal abscess/cellulitis -Improving -WBC trending down; leukocytosis resolved. 14.0 on admission, 11.9 yesterday, 10.4 today -Afebrile, stable vital signs (BP, HR) -Blood/urine culture: collected and pending -Urinalysis clean -ID consult: Dr. Holland recommended start IV zosyn, flagyl, doxycycline, and test for GC/Chlamydia; await wound culture results 2. Perineal abscess/cellulitis, s/p I&D -CT: tubular shaped fluid collection at left aspect of base of the penis extending to the left perineal and left perineum, measures approximately 8.5x3.5x3.7 cm. There is thin enhancing wall in his collection. Possibility of abscess formation. -Urology consult- Dr. Manning stated this is a surgical case and recommended surgery consult -Surgery consult- -s/p I&D, POD 1. 50cc of fluid drained from perineal abscess, wound cultures sent -packing removed today, dressing changed -Pain control with percocet or morphine PRN 3. Dehydration with azotemia -BUN 22 -Hydration -Monitor BUN 4. New onset Diabetes Mellitus, Type 2 -Accucheks ACHS -coverage scale -HbA1c 9.7 -Continue glipizide 10mg PO Q AM -Diabetic diet -Lipid profile only significant for low HDL at 27. total 118, LDL 68; recommend diet 5. DVT prophylaxis -SCDs 6. Dispo: plan for d/c tomorrow with PO antibiotics
[2017-02-21] MEDS ORDERED: Sodium Chloride 0.9% 1,000 ML IV SCH (14:45)
[2017-02-22] MEDS: metroNIDAZOLE 500mg/100ml NS 100 ML IVPB SCH ×2 (00:11→08:05)
[2017-02-22] MEDS: Piperacillin/Tazobact 3.375 GM in Sodium Chloride 0.9% 100 ML IVPB SCH ×4 (03:18→21:11)
[2017-02-22] MEDS: Oxycodone/Acetaminophen 5/325 mg Tab PO PRN ×2 (03:23→20:18)
[2017-02-22 06:25] LABS: BASO % 0.2 % (0.0-2.0); EOS # 0.1 K/uL (0.0-0.7); EOS % 0.5 % (0.0-4.0); HEMOGLOBIN 12.6 g/dL (12.0-18.0); LYMPH # 1.9 K/uL (1.0-4.3); LYMPH % 17.3 % (20.0-40.0); MEAN CORPUSCULAR HEMOGLOBIN 32.6 pg (27.0-31.0); MEAN CORPUSCULAR HGB CONC 34.4 g/dL (33.0-37.0); MEAN PLATELET VOLUME 8.1 fl (7.2-11.7); MONO # 0.7 K/uL (0.0-0.8); MONO % 6.7 % (0.0-10.0); NEUT # 8.1 K/uL (1.8-7.0); NEUT % 75.3 % (50.0-75.0); NRBC % 0.1 % (0.0-0.0); RBC 3.85 Mil/uL (4.40-5.90); RED CELL DISTRIBUTION WIDTH 12.9 % (11.5-14.5); WHITE BLOOD COUNT 10.7 K/uL (4.8-10.8)
[2017-02-22 06:29] LABS: BLOOD UREA NITROGEN 19 mg/dl (9-20); CALCIUM 8.2 mg/dL (8.4-10.2); GFR AFRICAN-AMERICAN > 60; GFR NON-AFRICAN AMERICAN > 60
--- NOTE | 2017-02-22 07:31 | CP.PCM.PN ---
Subjective - Date & Time of Evaluation Date of Evaluation: 02/22/17 Time of Evaluation: 07:29 - Subjective Subjective: Surgery for Dr. Hardy Pt s&e. PRASANNA. Denies F/C/N/V/D/CPS?OB. Pain controlled. + amb. + tolerating diet. Objective - Vital Signs/Intake and Output Vital Signs (last 24 hours): Temp Pulse Resp BP Pulse Ox 98.1 F 69 20 128/75 98 02/22/17 04:59 02/22/17 04:59 02/22/17 04:59 02/22/17 04:59 02/22/17 04:59 - Medications Medications: Current Medications Glipizide (Glucotrol) 10 mg PO ACB [facility] Last Admin: 02/21/17 06:46 Dose: 10 mg Doxycycline Hyclate 100 mg/ (Sodium Chloride) 100 mls @ 100 mls/hr IVPB Q12 [facility] Last Admin: 02/21/17 20:20 Dose: 100 mls/hr Piperacillin Sod/Tazobactam (Sod 3.375 gm/ Sodium Chloride) 100 mls @ 100 mls/ hr IVPB Q6 [facility] Last Admin: 02/22/17 03:18 Dose: 100 mls/hr Metronidazole (Flagyl 500mg/100ml Ns) 100 mls @ 100 mls/hr IVPB Q8 [facility] Last Admin: 02/22/17 00:11 Dose: 100 mls/hr Sodium Chloride (Sodium Chloride 0.9%) 1,000 mls @ 100 mls/hr IV .Q10H [facility] Stop: 02/22/17 14:39 Last Admin: 02/21/17 16:11 Dose: 100 mls/hr Insulin Human Lispro (Humalog) 0 units SC ACHS [facility] PRN Reason: Protocol Last Admin: 02/21/17 22:57 Dose: Not Given Morphine Sulfate (Morphine) 4 mg IVP Q4 PRN PRN Reason: Pain, severe (8-10) Last Admin: 02/21/17 07:24 Dose: 4 mg Oxycodone/Acetaminophen (Percocet 5/325 Mg Tab) 2 tab PO Q4 PRN PRN Reason: Pain, moderate (4-7) Stop: 02/23/17 14:55 Last Admin: 02/22/17 03:23 Dose: 2 tab - Labs Labs: 02/22/17 05:00 02/22/17 05:00 PT 13.7 Seconds (9.8-13.1) H 02/20/17 07:05 INR 1.3 (0.9-1.2) H 02/20/17 07:05 APTT 29.5 Seconds (25.6-37.1) 02/20/17 07:05 - Constitutional Appears: No Acute Distress - Head Exam Head Exam: ATRAUMATIC, NORMAL INSPECTION, NORMOCEPHALIC - Eye Exam Eye Exam: EOMI, Normal appearance, PERRL Pupil Exam: NORMAL ACCOMODATION, PERRL - ENT Exam ENT Exam: Mucous Membranes Moist, Normal Exam - Neck Exam Neck Exam: Full ROM, Normal Inspection. absent: Lymphadenopathy - Respiratory Exam Respiratory Exam: Clear to Ausculation Bilateral, NORMAL BREATHING PATTERN - Cardiovascular Exam Cardiovascular Exam: REGULAR RHYTHM, +S1, +S2. absent: Murmur - GI/Abdominal Exam GI & Abdominal Exam: Soft, Normal Bowel Sounds. absent: Distended, Tenderness - Rectal Exam Rectal Exam: absent: Black Stool, Bloody Stool, Hemorrhoids, Fecal Impaction Additional comments: R perineal area 3cm long 4 cm deep incision open. Minimal SS drainage. dressing changed. Mild TTP - Exam Exam: NORMAL INSPECTION - Extremities Exam Extremities Exam: Full ROM, Normal Capillary Refill, Normal Inspection. absent : Joint Swelling, Pedal Edema - Back Exam Back Exam: NORMAL INSPECTION - Neurological Exam Neurological Exam: Alert, Awake, CN II-XII Intact, Normal Gait, Oriented x3 - Psychiatric Exam Psychiatric exam: Normal Affect, Normal Mood - Skin Skin Exam: Dry, Intact, Normal Color, Warm Assessment and Plan - Assessment and Plan (Free Text) Assessment: Incision and drainage of R scrotum/perineum POD 2 : improving No lelukocytosis Afebrile -Ok to DC for surgical standpoint -F/u at Dr. Hardy 's office in 1 week after DC -Blood sugar control - OK to take shower. -Wound culture growing G - johny. -ABX per ID - We will follow Will DW attending .
[2017-02-22] MEDS: Insulin Lispro (humaLOG) 100 Units/ml Inj SC SCH ×4 (08:06→22:00)
--- NOTE | 2017-02-22 09:03 | CP.PCM.DIS ---
Provider - Provider Date of Admission: 02/19/17 17:47 Attending physician: Edwin Solano MD Primary care physician: none Consults: General Surgery Infectious Disease Urology Time Spent in preparation of Discharge (in minutes): 30 Diagnosis - Discharge Diagnosis (1) Abscess or cellulitis of perineum Status: Acute Comment: s/p I&D (2) Sepsis Status: Resolved Hospital Course - Lab Results Lab Results: Micro Results 02/20/17 14:41 Rectum Gram Stain - Final 02/20/17 14:41 Rectum Wound Culture - Final Klebsiella Pneumoniae Ssp Pneu 02/20/17 14:41 Rectum Gram Stain - Final 02/20/17 14:41 Rectum Wound Culture - Final Klebsiella Pneumoniae Ssp Pneu 02/19/17 18:30 Blood-Venous Blood Culture - Preliminary NO GROWTH AFTER 48 HOURS 02/19/17 17:56 Blood-Venous Blood Culture - Preliminary NO GROWTH AFTER 48 HOURS Most Recent Lab Values WBC 10.7 K/uL (4.8-10.8) 02/22/17 05:00 RBC 3.85 Mil/uL (4.40-5.90) L 02/22/17 05:00 Hgb 12.6 g/dL (12.0-18.0) 02/22/17 05:00 Hct 36.6 % (35.0-51.0) 02/22/17 05:00 MCV 95.0 fl (80.0-94.0) H 02/22/17 05:00 MCH 32.6 pg (27.0-31.0) H 02/22/17 05:00 MCHC 34.4 g/dL (33.0-37.0) 02/22/17 05:00 RDW 12.9 % (11.5-14.5) 02/22/17 05:00 Plt Count 194 K/uL (130-400) 02/22/17 05:00 MPV 8.1 fl (7.2-11.7) 02/22/17 05:00 Neut % (Auto) 75.3 % (50.0-75.0) H 02/22/17 05:00 Lymph % (Auto) 17.3 % (20.0-40.0) L 02/22/17 05:00 Teller % (Auto) 6.7 % (0.0-10.0) 02/22/17 05:00 Eos % (Auto) 0.5 % (0.0-4.0) 02/22/17 05:00 Baso % (Auto) 0.2 % (0.0-2.0) 02/22/17 05:00 Neut # 8.1 K/uL (1.8-7.0) H 02/22/17 05:00 Lymph # 1.9 K/uL (1.0-4.3) 02/22/17 05:00 Teller # 0.7 K/uL (0.0-0.8) 02/22/17 05:00 Eos # 0.1 K/uL (0.0-0.7) 02/22/17 05:00 Baso # 0.0 K/uL (0.0-0.2) 02/22/17 05:00 Neutrophils % (Manual) 83 % (42-75) H 02/21/17 06:00 Band Neutrophils % 3 % (0-2) H 02/21/17 06:00 Lymphocytes % (Manual) 10 % (20-50) L 02/21/17 06:00 Monocytes % (Manual) 4 % (0-10) 02/21/17 06:00 Platelet Estimate Normal (NORMAL) 02/21/17 06:00 Large Platelets Present 02/21/17 06:00 Anisocytosis (manual) Slight 02/21/17 06:00 Macrocytosis (manual) Slight 02/21/17 06:00 PT 13.7 Seconds (9.8-13.1) H 02/20/17 07:05 INR 1.3 (0.9-1.2) H 02/20/17 07:05 APTT 29.5 Seconds (25.6-37.1) 02/20/17 07:05 pCO2 34 mm/Hg (35-45) L 02/19/17 17:42 pO2 92 mm/Hg (80-100) 02/19/17 17:42 HCO3 23.6 mmol/L (21-28) 02/19/17 17:42 ABG pH 7.42 (7.35-7.45) 02/19/17 17:42 ABG Total CO2 23.1 mmol/L (22-28) 02/19/17 17:42 ABG O2 Saturation 100.0 % (95-98) H 02/19/17 17:42 ABG Base Excess -1.7 mmol/L (-2.0-3.0) 02/19/17 17:42 Thomas Test Yes 02/19/17 17:42 ABG Potassium 3.8 mmol/L (3.6-5.2) 02/19/17 17:42 A-a O2 Difference 15.0 mm/Hg 02/19/17 17:42 Sodium 134.0 mmol/L (132-148) 02/19/17 17:42 Chloride 101.0 mmol/L (98-107) 02/19/17 17:42 Glucose 275 mg/dL (75-110) H 02/19/17 17:42 Lactate 1.2 mmol/L (0.7-2.1) 02/19/17 17:42 FiO2 21.0 % 02/19/17 17:42 Sodium 137 mmol/l (132-148) 02/22/17 05:00 Potassium 3.9 MMOL/L (3.6-5.0) 02/22/17 05:00 Chloride 106 mmol/L (98-107) 02/22/17 05:00 Carbon Dioxide 25 mmol/L (22-30) 02/22/17 05:00 Anion Gap 10 (10-20) 02/22/17 05:00 BUN 19 mg/dl (9-20) 02/22/17 05:00 Creatinine 0.8 mg/dL (0.8-1.5) 02/22/17 05:00 Est GFR ( Amer) > 60 02/22/17 05:00 Est GFR (Non-Af Amer) > 60 02/22/17 05:00 POC Glucose (mg/dL) 162 mg/dL (65-110) H 02/22/17 05:43 Random Glucose 165 mg/dL (75-110) H 02/22/17 05:00 Hemoglobin A1c 9.7 % (4.2-6.5) H 02/20/17 07:05 Lactic Acid 2.0 MMOL/L (0.7-2.1) 02/19/17 19:45 Calcium 8.2 mg/dL (8.4-10.2) L 02/22/17 05:00 Total Bilirubin 1.2 mg/dl (0.2-1.3) 02/21/17 06:00 AST 27 U/L (17-59) 02/21/17 06:00 ALT 64 U/L (21-72) 02/21/17 06:00 Alkaline Phosphatase 105 U/L (38-126) 02/21/17 06:00 Troponin I < 0.0120 ng/mL (0.00-0.120) 02/19/17 15:00 Total Protein 5.6 G/DL (6.3-8.2) L 02/21/17 06:00 Albumin 2.9 g/dL (3.5-5.0) L D 02/21/17 06:00 Globulin 2.7 gm/dL (2.2-3.9) 02/21/17 06:00 Albumin/Globulin Ratio 1.1 (1.0-2.1) 02/21/17 06:00 Triglycerides 83 mg/DL (0-149) 02/21/17 06:00 Cholesterol 118 mg/dL (0-199) 02/21/17 06:00 LDL Cholesterol Direct 68 mg/dL (0-129) 02/21/17 06:00 HDL Cholesterol 27 MG/DL (30-70) L 02/21/17 06:00 Arterial Blood Potassium 3.8 mmol/L (3.6-5.2) 02/19/17 17:42 Urine Color Yellow (YELLOW) 02/19/17 16:50 Urine Clarity Clear (Clear) 02/19/17 16:50 Urine pH 6.0 (5.0-8.0) 02/19/17 16:50 Ur Specific Tyro > 1.060 (1.003-1.030) H 02/19/17 16:50 Urine Protein Negative mg/dL (NEGATIVE) 02/19/17 16:50 Urine Glucose (UA) >=500 mg/dL (Normal) 02/19/17 16:50 Urine Ketones 20 mg/dL (NEGATIVE) 02/19/17 16:50 Urine Blood Negative (NEGATIVE) 02/19/17 16:50 Urine Nitrate Negative (NEGATIVE) 02/19/17 16:50 Urine Bilirubin Negative (NEGATIVE) 02/19/17 16:50 Urine Urobilinogen 0.2-1.0 mg/dL (0.2-1.0) 02/19/17 16:50 Ur Leukocyte Esterase Neg Karina/uL (Negative) 02/19/17 16:50 Urine RBC (Auto) 1 /hpf (0-3) 02/19/17 16:50 Urine Microscopic WBC < 1 /hpf (0-5) 02/19/17 16:50 Discharge Exam - Head Exam Head Exam: ATRAUMATIC, NORMAL INSPECTION, NORMOCEPHALIC Discharge Plan - Follow Up Plan Condition: FAIR Disposition: HOME/ ROUTINE Instructions: Cellulitis (DC), Cellulitis (GEN), Abscess (GEN)
--- NOTE | 2017-02-22 09:21 | CP.PCM.PN ---
<Dinah Knapp - Last Filed: 02/22/17 14:43> Subjective - Date & Time of Evaluation Date of Evaluation: 02/22/17 Time of Evaluation: 08:30 - Subjective Subjective: Patient seen and evaluated at bedside; no acute events overnight. POD2, s/p I&D of perineal abscess, packing was removed, dressing in place over perineal incision. Patient able to urinate and have BMs. Pt denies new onset pain, chest pain, shortness of breath, nausea, vomiting, leg/calf pain/swelling. Objective - Vital Signs/Intake and Output Vital Signs (last 24 hours): Temp Pulse Resp BP Pulse Ox 98.4 F 67 20 158/95 H 100 02/22/17 08:00 02/22/17 08:00 02/22/17 08:00 02/22/17 08:00 02/22/17 08:00 - Medications Medications: Current Medications Glipizide (Glucotrol) 10 mg PO ACB [facility] Last Admin: 02/22/17 08:06 Dose: 10 mg Piperacillin Sod/Tazobactam (Sod 3.375 gm/ Sodium Chloride) 100 mls @ 100 mls/ hr IVPB Q6 [facility] Last Admin: 02/22/17 09:01 Dose: 100 mls/hr Metronidazole (Flagyl 500mg/100ml Ns) 100 mls @ 100 mls/hr IVPB Q8 [facility] Last Admin: 02/22/17 08:05 Dose: 100 mls/hr Sodium Chloride (Sodium Chloride 0.9%) 1,000 mls @ 100 mls/hr IV .Q10H [facility] Stop: 02/22/17 14:39 Last Admin: 02/21/17 16:11 Dose: 100 mls/hr Insulin Human Lispro (Humalog) 0 units SC ACHS [facility] PRN Reason: Protocol Last Admin: 02/22/17 08:06 Dose: 1 units Morphine Sulfate (Morphine) 4 mg IVP Q4 PRN PRN Reason: Pain, severe (8-10) Last Admin: 02/21/17 07:24 Dose: 4 mg Oxycodone/Acetaminophen (Percocet 5/325 Mg Tab) 2 tab PO Q4 PRN PRN Reason: Pain, moderate (4-7) Stop: 02/23/17 14:55 Last Admin: 02/22/17 03:23 Dose: 2 tab - Labs Labs: 02/22/17 05:00 02/22/17 05:00 PT 13.7 Seconds (9.8-13.1) H 02/20/17 07:05 INR 1.3 (0.9-1.2) H 02/20/17 07:05 APTT 29.5 Seconds (25.6-37.1) 02/20/17 07:05 - Constitutional Appears: Non-toxic, No Acute Distress - Eye Exam Eye Exam: EOMI, Normal appearance, PERRL - ENT Exam ENT Exam: Mucous Membranes Moist - Respiratory Exam Respiratory Exam: Clear to Ausculation Bilateral, NORMAL BREATHING PATTERN. absent: Wheezes, Respiratory Distress - Cardiovascular Exam Cardiovascular Exam: REGULAR RHYTHM, +S1, +S2 - GI/Abdominal Exam GI & Abdominal Exam: Soft, Normal Bowel Sounds - Exam Additional comments: dressing in place over perenium - Extremities Exam Extremities Exam: Normal Inspection. absent: Calf Tenderness - Back Exam Back Exam: NORMAL INSPECTION - Neurological Exam Neurological Exam: Alert, Awake, Oriented x3 - Psychiatric Exam Psychiatric exam: Normal Mood - Skin Skin Exam: Normal Color, Warm Assessment and Plan - Assessment and Plan (Free Text) Assessment: This is a 56 yo M with new onset DM2 (unknown prior to admission) who presented to ED due to groin pain and swelling and was found to have perineal abscess; pt is s/p I&D where 50cc of fluid was removed, POD 2. Plan: 1. Perineal abscess/cellulitis, s/p I&D -CT: tubular shaped fluid collection at left aspect of base of the penis extending to the left perineal and left perineum, measures approximately 8.5x3.5x3.7 cm. There is thin enhancing wall in his collection. Possibility of abscess formation. -Urology consult- Dr. Manning stated this is a surgical case and recommended surgery consult -Surgery consult- -s/p I&D, POD 2. 50cc of fluid drained from perineal abscess -packing removed yesterday, dressing changed -wound culture positive for Klebsiella pneumoniae spp- as per ID, continue IV antibiotics -f/u in clinic -Continue with zosyn, flagyl -Pain control with percocet or morphine PRN 2. New onset Diabetes Mellitus, Type 2 -Accucheks ACHS -coverage scale -HbA1c 9.7 -Continue glipizide 10mg PO Q AM -Diabetic diet -Lipid profile only significant for low HDL at 27. total 118, LDL 68; recommend diet -f/u with outpatient provider on discharge 3. Sepsis due to perineal abscess/cellulitis -Resolved -WBC trending down; leukocytosis resolved, today 10.7 -Afebrile, stable vital signs (BP, HR) -Blood culture no growth -Urinalysis clean -ID consult: Dr. Holland recommended continue IV antibiotics, ordered GC/[place] testing 4. Dehydration with azotemia -improving,BUN 19 today -Hydration -Monitor BUN 5. DVT prophylaxis -KENNAs <Elida Phillips - Last Filed: 02/22/17 14:58> Objective - Vital Signs/Intake and Output Vital Signs (last 24 hours): Temp Pulse Resp BP Pulse Ox 98.4 F 62 18 161/90 H 100 02/22/17 12:00 02/22/17 12:00 02/22/17 12:00 02/22/17 12:00 02/22/17 12:00 - Medications Medications: Current Medications Enoxaparin Sodium (Lovenox) 40 mg SC DAILY [facility] PRN Reason: Protocol Glipizide (Glucotrol) 10 mg PO ACB [facility] Last Admin: 02/22/17 08:06 Dose: 10 mg Piperacillin Sod/Tazobactam (Sod 3.375 gm/ Sodium Chloride) 100 mls @ 100 mls/ hr IVPB Q6 [facility] Last Admin: 02/22/17 09:01 Dose: 100 mls/hr Insulin Human Lispro (Humalog) 0 units SC [facility] PRN Reason: Protocol Last Admin: 02/22/17 12:22 Dose: Not Given Metronidazole (Flagyl) 500 mg PO Q8 [facility] Morphine Sulfate (Morphine) 4 mg IVP Q4 PRN PRN Reason: Pain, severe (8-10) Last Admin: 02/21/17 07:24 Dose: 4 mg Oxycodone/Acetaminophen (Percocet 5/325 Mg Tab) 2 tab PO Q4 PRN PRN Reason: Pain, moderate (4-7) Stop: 02/23/17 14:55 Last Admin: 02/22/17 03:23 Dose: 2 tab - Labs Labs: 02/22/17 05:00 02/22/17 05:00 PT 13.7 Seconds (9.8-13.1) H 02/20/17 07:05 INR 1.3 (0.9-1.2) H 02/20/17 07:05 APTT 29.5 Seconds (25.6-37.1) 02/20/17 07:05 Assessment and Plan (1) Sepsis Status: Resolved (2) Abscess or cellulitis of perineum Status: Acute (3) New onset type 2 diabetes mellitus Status: Acute (4) DVT prophylaxis Status: Acute Attending/Attestation - Attestation I have personally seen and examined this patient.: Yes I have fully participated in the care of the patient.: Yes I have reviewed all pertinent clinical information, including history, physical exam and plan: Yes Notes (Text): Pt continues to improve. No fever. Leukocytosis resolved. Discussed case with Dr Holland - rec to continue IV abx given that pt had severe perineal abscess and is a diabetic. Rec also to d/c IV Doxycycline. Wound c/s : Klebsiellla A/P: Sepsis sec to Perineal Absces and Celluitis s/p Incision and drainage New Onset DM type II HTN - cont IV Zosyn and , Flagyl changed to PO ( back order) , d/c Doxy - start Diovan - cont Glipizide
[2017-02-22] MEDS ORDERED: Enoxaparin 40 mg Syringe SC STA (12:05)
[2017-02-23] MEDS: Piperacillin/Tazobact 3.375 GM in Sodium Chloride 0.9% 100 ML IVPB SCH ×3 (03:56→15:14)
[2017-02-23] MEDS: Insulin Lispro (humaLOG) 100 Units/ml Inj SC SCH ×3 (06:36→17:09)
[2017-02-23 08:12] VITALS: RESP 20
[2017-02-23] MEDS ORDERED: Enoxaparin 40 mg Syringe SC SCH (09:00)
[2017-02-23 12:35] VITALS: O2SAT 98
--- NOTE | 2017-02-23 12:42 | CP.PCM.DIS ---
<Dinah Knapp - Last Filed: 02/23/17 16:19> Provider - Provider Date of Admission: 02/19/17 17:47 Attending physician: Edwin Solano MD Primary care physician: lulu Consults: Infectious Disease General Surgery Urology Time Spent in preparation of Discharge (in minutes): 30 Diagnosis - Discharge Diagnosis (1) Abscess or cellulitis of perineum Status: Acute Comment: s/p I&D (2) New onset type 2 diabetes mellitus Status: Acute Comment: started on Glucotrol (glipizide) (3) Sepsis Status: Resolved (4) Hypertension Status: Acute Comment: started on Diovan (Valsartan) Hospital Course - Lab Results Lab Results: Micro Results 02/20/17 14:41 Rectum Gram Stain - Final 02/20/17 14:41 Rectum Wound Culture - Final Klebsiella Pneumoniae Ssp Pneu Streptococcus Viridans 02/20/17 14:41 Rectum Gram Stain - Final 02/20/17 14:41 Rectum Wound Culture - Final Klebsiella Pneumoniae Ssp Pneu Streptococcus Viridans 02/19/17 18:30 Blood-Venous Blood Culture - Preliminary NO GROWTH AFTER 3 DAYS 02/19/17 17:56 Blood-Venous Blood Culture - Preliminary NO GROWTH AFTER 3 DAYS 02/19/17 23:30 Urine Urine Culture - Final Gram Positive Cory Most Recent Lab Values WBC 10.7 K/uL (4.8-10.8) 02/22/17 05:00 RBC 3.85 Mil/uL (4.40-5.90) L 02/22/17 05:00 Hgb 12.6 g/dL (12.0-18.0) 02/22/17 05:00 Hct 36.6 % (35.0-51.0) 02/22/17 05:00 MCV 95.0 fl (80.0-94.0) H 02/22/17 05:00 MCH 32.6 pg (27.0-31.0) H 02/22/17 05:00 MCHC 34.4 g/dL (33.0-37.0) 02/22/17 05:00 RDW 12.9 % (11.5-14.5) 02/22/17 05:00 Plt Count 194 K/uL (130-400) 02/22/17 05:00 MPV 8.1 fl (7.2-11.7) 02/22/17 05:00 Neut % (Auto) 75.3 % (50.0-75.0) H 02/22/17 05:00 Lymph % (Auto) 17.3 % (20.0-40.0) L 02/22/17 05:00 [place] % (Auto) 6.7 % (0.0-10.0) 02/22/17 05:00 Eos % (Auto) 0.5 % (0.0-4.0) 02/22/17 05:00 Baso % (Auto) 0.2 % (0.0-2.0) 02/22/17 05:00 Neut # 8.1 K/uL (1.8-7.0) H 02/22/17 05:00 Lymph # 1.9 K/uL (1.0-4.3) 02/22/17 05:00 [place] # 0.7 K/uL (0.0-0.8) 02/22/17 05:00 Eos # 0.1 K/uL (0.0-0.7) 02/22/17 05:00 Baso # 0.0 K/uL (0.0-0.2) 02/22/17 05:00 Neutrophils % (Manual) 83 % (42-75) H 02/21/17 06:00 Band Neutrophils % 3 % (0-2) H 02/21/17 06:00 Lymphocytes % (Manual) 10 % (20-50) L 02/21/17 06:00 Monocytes % (Manual) 4 % (0-10) 02/21/17 06:00 Platelet Estimate Normal (NORMAL) 02/21/17 06:00 Large Platelets Present 02/21/17 06:00 Anisocytosis (manual) Slight 02/21/17 06:00 Macrocytosis (manual) Slight 02/21/17 06:00 PT 13.7 Seconds (9.8-13.1) H 02/20/17 07:05 INR 1.3 (0.9-1.2) H 02/20/17 07:05 APTT 29.5 Seconds (25.6-37.1) 02/20/17 07:05 pCO2 34 mm/Hg (35-45) L 02/19/17 17:42 pO2 92 mm/Hg (80-100) 02/19/17 17:42 HCO3 23.6 mmol/L (21-28) 02/19/17 17:42 ABG pH 7.42 (7.35-7.45) 02/19/17 17:42 ABG Total CO2 23.1 mmol/L (22-28) 02/19/17 17:42 ABG O2 Saturation 100.0 % (95-98) H 02/19/17 17:42 ABG Base Excess -1.7 mmol/L (-2.0-3.0) 02/19/17 17:42 Thomas Test Yes 02/19/17 17:42 ABG Potassium 3.8 mmol/L (3.6-5.2) 02/19/17 17:42 A-a O2 Difference 15.0 mm/Hg 02/19/17 17:42 Sodium 134.0 mmol/L (132-148) 02/19/17 17:42 Chloride 101.0 mmol/L (98-107) 02/19/17 17:42 Glucose 275 mg/dL (75-110) H 02/19/17 17:42 Lactate 1.2 mmol/L (0.7-2.1) 02/19/17 17:42 FiO2 21.0 % 02/19/17 17:42 Sodium 137 mmol/l (132-148) 02/22/17 05:00 Potassium 3.9 MMOL/L (3.6-5.0) 02/22/17 05:00 Chloride 106 mmol/L (98-107) 02/22/17 05:00 Carbon Dioxide 25 mmol/L (22-30) 02/22/17 05:00 Anion Gap 10 (10-20) 02/22/17 05:00 BUN 19 mg/dl (9-20) 02/22/17 05:00 Creatinine 0.8 mg/dL (0.8-1.5) 02/22/17 05:00 Est GFR ( Amer) > 60 02/22/17 05:00 Est GFR (Non-Af Amer) > 60 02/22/17 05:00 POC Glucose (mg/dL) 184 mg/dL (65-110) H 02/23/17 05:18 Random Glucose 165 mg/dL (75-110) H 02/22/17 05:00 Hemoglobin A1c 9.7 % (4.2-6.5) H 02/20/17 07:05 Lactic Acid 2.0 MMOL/L (0.7-2.1) 02/19/17 19:45 Calcium 8.2 mg/dL (8.4-10.2) L 02/22/17 05:00 Total Bilirubin 1.2 mg/dl (0.2-1.3) 02/21/17 06:00 AST 27 U/L (17-59) 02/21/17 06:00 ALT 64 U/L (21-72) 02/21/17 06:00 Alkaline Phosphatase 105 U/L (38-126) 02/21/17 06:00 Troponin I < 0.0120 ng/mL (0.00-0.120) 02/19/17 15:00 Total Protein 5.6 G/DL (6.3-8.2) L 02/21/17 06:00 Albumin 2.9 g/dL (3.5-5.0) L D 02/21/17 06:00 Globulin 2.7 gm/dL (2.2-3.9) 02/21/17 06:00 Albumin/Globulin Ratio 1.1 (1.0-2.1) 02/21/17 06:00 Triglycerides 83 mg/DL (0-149) 02/21/17 06:00 Cholesterol 118 mg/dL (0-199) 02/21/17 06:00 LDL Cholesterol Direct 68 mg/dL (0-129) 02/21/17 06:00 HDL Cholesterol 27 MG/DL (30-70) L 02/21/17 06:00 Arterial Blood Potassium 3.8 mmol/L (3.6-5.2) 02/19/17 17:42 Urine Color Yellow (YELLOW) 02/19/17 16:50 Urine Clarity Clear (Clear) 02/19/17 16:50 Urine pH 6.0 (5.0-8.0) 02/19/17 16:50 Ur Specific [place] > 1.060 (1.003-1.030) H 02/19/17 16:50 Urine Protein Negative mg/dL (NEGATIVE) 02/19/17 16:50 Urine Glucose (UA) >=500 mg/dL (Normal) 02/19/17 16:50 Urine Ketones 20 mg/dL (NEGATIVE) 02/19/17 16:50 Urine Blood Negative (NEGATIVE) 02/19/17 16:50 Urine Nitrate Negative (NEGATIVE) 02/19/17 16:50 Urine Bilirubin Negative (NEGATIVE) 02/19/17 16:50 Urine Urobilinogen 0.2-1.0 mg/dL (0.2-1.0) 02/19/17 16:50 Ur Leukocyte Esterase Neg Karina/uL (Negative) 02/19/17 16:50 Urine RBC (Auto) 1 /hpf (0-3) 02/19/17 16:50 Urine Microscopic WBC < 1 /hpf (0-5) 02/19/17 16:50 - Hospital Course Hospital Course: Pt is a 56 yo M with no known medical history on admission who presented to the hospital due to 6/10 pain and swelling in the groin x8 days that had worsened. CT showed perineal abscess, and labs showed leukocytosis, random glucose was 346. Blood and urine were collected and sent for culture. Infectious disease, urology,and general surgery were consulted; pt was started on zosyn, flagyl, and doxycycline, as well as glipizide for blood sugar control, morphine for severe pain control, SCD for deep vein thrombosis prophylaxis.Urology consult- stated this was a surgical case. Pt underwent I&D by general surgery, during which 50cc of purulent fluid was removed and fluid was sent for wound culture, and packing was put in place and a dressing was put in place; pt tolerated the procedure well. On POD1, packing was removed, only dressing was remained. Pt's leukocytosis resolved, WBC trended down to normal range. Pt had several elevated BP measurements, so valsartan was started as well. Would culture came back positive for Klebsiella pneumoniae spp and Streptococcus viridans, urine culture positive for gram positive rods. As per ID , doxycycline was d/c, and pt remained on IV abx for one more day until he was cleared for discharge on PO abx by ID. - Date & Time of H&P Date of H&P: 02/19/17 Time of H&P: 18:41 Discharge Exam - Head Exam Head Exam: ATRAUMATIC, NORMAL INSPECTION, NORMOCEPHALIC - Eye Exam Eye Exam: EOMI, Normal appearance - ENT Exam ENT Exam: Mucous Membranes Moist - Respiratory Exam Respiratory Exam: Clear to PA & Lateral, NORMAL BREATHING PATTERN, UNREMARKABLE - Cardiovascular Exam Cardiovascular Exam: REGULAR RHYTHM, +S1, +S2 - GI/Abdominal Exam GI & Abdominal Exam: Normal Bowel Sounds, Soft - Exam Additional comments: incision visible, dressing over perenium in place - Extremities Exam Extremities exam: normal capillary refill, normal inspection - Back Exam Back exam: NORMAL INSPECTION - Neurological Exam Neurological exam: Alert, Oriented x3 - Psychiatric Exam Psychiatric exam: Normal Mood - Skin Skin Exam: Dry, Normal Color, Warm Discharge Plan - Discharge Medications Prescriptions: Cefuroxime Axetil [Cefuroxime] 500 mg PO Q12 #28 tablet GlipiZIDE [Glucotrol] 10 mg PO ACB #60 tab Lactobacillus Acidophilus [Bacid Acidophilus] 1 cap PO BID #30 cap oxyCODONE/Acetaminophen [Percocet 5/325 mg Tab] 1 tab PO Q6 PRN #20 tab PRN Reason: Pain, Moderate (4-7) Valsartan [Diovan] 80 mg PO DAILY #30 tab - Follow Up Plan Condition: GOOD Disposition: HOME/ ROUTINE Instructions: Cellulitis (DC), Cellulitis (GEN), Abscess (GEN) Additional Instructions: appt [facility] for outpatient clinic in [address] Hardy in 1 wk Referrals: [facility] [Outside] Kvng Hardy MD [Staff Provider] - <Yumi PhillipsElidaabby Camacho - Last Filed: 02/23/17 16:57> Provider - Provider Date of Admission: 02/19/17 17:47 Attending physician: Edwin Solano MD Diagnosis - Discharge Diagnosis (1) Sepsis Status: Resolved (2) Abscess or cellulitis of perineum Status: Acute (3) New onset type 2 diabetes mellitus Status: Acute (4) DVT prophylaxis Status: Acute Hospital Course - Lab Results Lab Results: Micro Results 02/20/17 14:41 Rectum Gram Stain - Final 02/20/17 14:41 Rectum Wound Culture - Final Klebsiella Pneumoniae Ssp Pneu Streptococcus Viridans 02/20/17 14:41 Rectum Gram Stain - Final 02/20/17 14:41 Rectum Wound Culture - Final Klebsiella Pneumoniae Ssp Pneu Streptococcus Viridans 02/19/17 18:30 Blood-Venous Blood Culture - Preliminary NO GROWTH AFTER 3 DAYS 02/19/17 17:56 Blood-Venous Blood Culture - Preliminary NO GROWTH AFTER 3 DAYS 02/19/17 23:30 Urine Urine Culture - Final Gram Positive Cory Most Recent Lab Values WBC 10.7 K/uL (4.8-10.8) 02/22/17 05:00 RBC 3.85 Mil/uL (4.40-5.90) L 02/22/17 05:00 Hgb 12.6 g/dL (12.0-18.0) 02/22/17 05:00 Hct 36.6 % (35.0-51.0) 02/22/17 05:00 MCV 95.0 fl (80.0-94.0) H 02/22/17 05:00 MCH 32.6 pg (27.0-31.0) H 02/22/17 05:00 MCHC 34.4 g/dL (33.0-37.0) 02/22/17 05:00 RDW 12.9 % (11.5-14.5) 02/22/17 05:00 Plt Count 194 K/uL (130-400) 02/22/17 05:00 MPV 8.1 fl (7.2-11.7) 02/22/17 05:00 Neut % (Auto) 75.3 % (50.0-75.0) H 02/22/17 05:00 Lymph % (Auto) 17.3 % (20.0-40.0) L 02/22/17 05:00 [place] % (Auto) 6.7 % (0.0-10.0) 02/22/17 05:00 Eos % (Auto) 0.5 % (0.0-4.0) 02/22/17 05:00 Baso % (Auto) 0.2 % (0.0-2.0) 02/22/17 05:00 Neut # 8.1 K/uL (1.8-7.0) H 02/22/17 05:00 Lymph # 1.9 K/uL (1.0-4.3) 02/22/17 05:00 [place] # 0.7 K/uL (0.0-0.8) 02/22/17 05:00 Eos # 0.1 K/uL (0.0-0.7) 02/22/17 05:00 Baso # 0.0 K/uL (0.0-0.2) 02/22/17 05:00 Neutrophils % (Manual) 83 % (42-75) H 02/21/17 06:00 Band Neutrophils % 3 % (0-2) H 02/21/17 06:00 Lymphocytes % (Manual) 10 % (20-50) L 02/21/17 06:00 Monocytes % (Manual) 4 % (0-10) 02/21/17 06:00 Platelet Estimate Normal (NORMAL) 02/21/17 06:00 Large Platelets Present 02/21/17 06:00 Anisocytosis (manual) Slight 02/21/17 06:00 Macrocytosis (manual) Slight 02/21/17 06:00 PT 13.7 Seconds (9.8-13.1) H 02/20/17 07:05 INR 1.3 (0.9-1.2) H 02/20/17 07:05 APTT 29.5 Seconds (25.6-37.1) 02/20/17 07:05 pCO2 34 mm/Hg (35-45) L 02/19/17 17:42 pO2 92 mm/Hg (80-100) 02/19/17 17:42 HCO3 23.6 mmol/L (21-28) 02/19/17 17:42 ABG pH 7.42 (7.35-7.45) 02/19/17 17:42 ABG Total CO2 23.1 mmol/L (22-28) 02/19/17 17:42 ABG O2 Saturation 100.0 % (95-98) H 02/19/17 17:42 ABG Base Excess -1.7 mmol/L (-2.0-3.0) 02/19/17 17:42 Thomas Test Yes 02/19/17 17:42 ABG Potassium 3.8 mmol/L (3.6-5.2) 02/19/17 17:42 A-a O2 Difference 15.0 mm/Hg 02/19/17 17:42 Sodium 134.0 mmol/L (132-148) 02/19/17 17:42 Chloride 101.0 mmol/L (98-107) 02/19/17 17:42 Glucose 275 mg/dL (75-110) H 02/19/17 17:42 Lactate 1.2 mmol/L (0.7-2.1) 02/19/17 17:42 FiO2 21.0 % 02/19/17 17:42 Sodium 137 mmol/l (132-148) 02/22/17 05:00 Potassium 3.9 MMOL/L (3.6-5.0) 02/22/17 05:00 Chloride 106 mmol/L (98-107) 02/22/17 05:00 Carbon Dioxide 25 mmol/L (22-30) 02/22/17 05:00 Anion Gap 10 (10-20) 02/22/17 05:00 BUN 19 mg/dl (9-20) 02/22/17 05:00 Creatinine 0.8 mg/dL (0.8-1.5) 02/22/17 05:00 Est GFR ( Amer) > 60 02/22/17 05:00 Est GFR (Non-Af Amer) > 60 02/22/17 05:00 POC Glucose (mg/dL) 235 mg/dL (65-110) H 02/23/17 11:31 Random Glucose 165 mg/dL (75-110) H 02/22/17 05:00 Hemoglobin A1c 9.7 % (4.2-6.5) H 02/20/17 07:05 Lactic Acid 2.0 MMOL/L (0.7-2.1) 02/19/17 19:45 Calcium 8.2 mg/dL (8.4-10.2) L 02/22/17 05:00 Total Bilirubin 1.2 mg/dl (0.2-1.3) 02/21/17 06:00 AST 27 U/L (17-59) 02/21/17 06:00 ALT 64 U/L (21-72) 02/21/17 06:00 Alkaline Phosphatase 105 U/L (38-126) 02/21/17 06:00 Troponin I < 0.0120 ng/mL (0.00-0.120) 02/19/17 15:00 Total Protein 5.6 G/DL (6.3-8.2) L 02/21/17 06:00 Albumin 2.9 g/dL (3.5-5.0) L D 02/21/17 06:00 Globulin 2.7 gm/dL (2.2-3.9) 02/21/17 06:00 Albumin/Globulin Ratio 1.1 (1.0-2.1) 02/21/17 06:00 Triglycerides 83 mg/DL (0-149) 02/21/17 06:00 Cholesterol 118 mg/dL (0-199) 02/21/17 06:00 LDL Cholesterol Direct 68 mg/dL (0-129) 02/21/17 06:00 HDL Cholesterol 27 MG/DL (30-70) L 02/21/17 06:00 Arterial Blood Potassium 3.8 mmol/L (3.6-5.2) 02/19/17 17:42 Urine Color Yellow (YELLOW) 02/19/17 16:50 Urine Clarity Clear (Clear) 02/19/17 16:50 Urine pH 6.0 (5.0-8.0) 02/19/17 16:50 Ur Specific [place] > 1.060 (1.003-1.030) H 02/19/17 16:50 Urine Protein Negative mg/dL (NEGATIVE) 02/19/17 16:50 Urine Glucose (UA) >=500 mg/dL (Normal) 02/19/17 16:50 Urine Ketones 20 mg/dL (NEGATIVE) 02/19/17 16:50 Urine Blood Negative (NEGATIVE) 02/19/17 16:50 Urine Nitrate Negative (NEGATIVE) 02/19/17 16:50 Urine Bilirubin Negative (NEGATIVE) 02/19/17 16:50 Urine Urobilinogen 0.2-1.0 mg/dL (0.2-1.0) 02/19/17 16:50 Ur Leukocyte Esterase Neg Karina/uL (Negative) 02/19/17 16:50 Urine RBC (Auto) 1 /hpf (0-3) 02/19/17 16:50 Urine Microscopic WBC < 1 /hpf (0-5) 02/19/17 16:50 C.trachomatis RNA (TMA) Not detected (Not Detected) 02/20/17 15:46 N.gonorrhoeae RNA (TMA) Not detected (Not Detected) 02/20/17 15:46 Attending/Attestation - Attestation I have personally seen and examined this patient.: Yes I have fully participated in the care of the patient.: Yes I have reviewed all pertinent clinical information, including history, physical exam and plan: Yes
--- NOTE | 2017-02-23 13:22 | CP.PCM.PN ---
Subjective - Date & Time of Evaluation Date of Evaluation: 02/23/17 Time of Evaluation: 13:19 - Subjective Subjective: General Surgery - Dr. Hardy Pt S&E. SAMEER. Pt denies any complaints. He states site of I&D/Former abscess is greatly improved and he denies any discomfort to the area. He is ambulating , tolerating regular diet, having BMs. No F/C, SOB/CP. Objective - Vital Signs/Intake and Output Vital Signs (last 24 hours): Temp Pulse Resp BP Pulse Ox 99 F 89 20 145/95 H 98 02/23/17 12:00 02/23/17 12:00 02/23/17 12:00 02/23/17 12:00 02/23/17 12:00 Intake and Output: 02/23/17 02/23/17 06:59 18:59 Intake Total 1800 Output Total 800 Balance 1000 - Medications Medications: Current Medications Enoxaparin Sodium (Lovenox) 40 mg SC DAILY ETHAN PRN Reason: Protocol Last Admin: 02/23/17 09:03 Dose: 40 mg Glipizide (Glucotrol) 10 mg PO ACB [facility] Last Admin: 02/23/17 09:02 Dose: 10 mg Piperacillin Sod/Tazobactam (Sod 3.375 gm/ Sodium Chloride) 100 mls @ 100 mls/ hr IVPB Q6 [facility] Last Admin: 02/23/17 09:03 Dose: 100 mls/hr Insulin Human Lispro (Humalog) 0 units SC ACHS ETHAN PRN Reason: Protocol Last Admin: 02/23/17 12:13 Dose: 2 units Metronidazole (Flagyl) 500 mg PO Q8 [facility] Last Admin: 02/23/17 09:02 Dose: 500 mg Morphine Sulfate (Morphine) 4 mg IVP Q4 PRN PRN Reason: Pain, severe (8-10) Last Admin: 02/21/17 07:24 Dose: 4 mg Oxycodone/Acetaminophen (Percocet 5/325 Mg Tab) 2 tab PO Q4 PRN PRN Reason: Pain, moderate (4-7) Stop: 02/23/17 14:55 Last Admin: 02/22/17 20:18 Dose: 2 tab Valsartan (Diovan) 80 mg PO DAILY [facility] Last Admin: 02/23/17 09:01 Dose: 80 mg - Labs Labs: 02/22/17 05:00 02/22/17 05:00 PT 13.7 Seconds (9.8-13.1) H 02/20/17 07:05 INR 1.3 (0.9-1.2) H 02/20/17 07:05 APTT 29.5 Seconds (25.6-37.1) 02/20/17 07:05 - Constitutional Appears: No Acute Distress - Head Exam Head Exam: ATRAUMATIC, NORMAL INSPECTION, NORMOCEPHALIC - Eye Exam Eye Exam: Normal appearance - ENT Exam ENT Exam: Mucous Membranes Moist - Respiratory Exam Respiratory Exam: NORMAL BREATHING PATTERN. absent: Respiratory Distress - Cardiovascular Exam Cardiovascular Exam: REGULAR RHYTHM - GI/Abdominal Exam GI & Abdominal Exam: Soft. absent: Tenderness - Rectal Exam Additional comments: S/P I&D, dressing with some drainage, healing well, cellulitis improved, dressing changed with clean 4x4 gauze - Neurological Exam Neurological Exam: Alert, Oriented x3 - Psychiatric Exam Psychiatric exam: Normal Affect, Normal Mood - Skin Skin Exam: Dry, Intact Assessment and Plan - Assessment and Plan (Free Text) Assessment: 56yo M s/p I&D of R perineal abscess, POD #3 -Clear for DC from surgical standpoint -Continue PO ABx as per GI -Continue daily dressing change with clean 4x4 gauze after bath/shower at home. -Make appt. to f/u with Dr. Hardy in 2 weeks Patient seen and discussed with Dr. Hayley Vasquez PGY3
[2017-02-23 16:16] VITALS: BP 147/93; PULSE 112; TEMP 97.5
== END 2017-02-23 17:47 | disposition home or self-care (01) | DRG 872 ==
LOC: H.ER 14:17 → H.ERHOLD 17:47 → H.TEL 18:55
PROVIDERS: ADMIT Hospitalist; ATTEND Hospitalist
PROC: 0D9Q0ZX Drainage of Anus, Open Approach, Diagnostic (ICD-10-PCS; principal; 2017-02-20 12:30)
DX: A41.9 Sepsis, unspecified organism (principal); L02.215 Cutaneous abscess of perineum; L03.315 Cellulitis of perineum; K61.0 Anal abscess; B95.4 Other streptococcus as the cause of diseases classified elsewhere; B96.1 Klebsiella pneumoniae [K. pneumoniae] as the cause of diseases classified elsewhere; E11.9 Type 2 diabetes mellitus without complications; E86.0 Dehydration; I10 Essential (primary) hypertension; M17.9 Osteoarthritis of knee, unspecified; F17.210 Nicotine dependence, cigarettes, uncomplicated

== ENCOUNTER 2018-01-18 07:37 | Emergency (ER) | payer SELFPAY ==
[2018-01-18 07:46] VITALS: BMI 39.1
--- NOTE | 2018-01-18 08:00 | ED PDOC ---
HPI: Dental Pain/Injury Time Seen by Provider: 01/18/18 07:48 Chief Complaint (Nursing): Dental Pain Chief Complaint (Provider): Dental pain History Per: Patient History/Exam Limitations: no limitations Onset/Duration Of Symptoms: Days (x2) Current Symptoms Are (Timing): Still Present Quality: "Pain" Additional Complaint(s): Zachary Rivera is a 57 year old male, with a past medical history of diabetes and hypertension, who presents to the emergency department complaining of right upper dental pain associated with swelling onset for x2 days. Patient took x2 doses of penicillin without improvement. He denies any fever, chills, drainage or trauma. No further medical complaints. PMD: Kortney Rivas Past Medical History Reviewed: Historical Data, Nursing Documentation, Vital Signs Vital Signs: Last Vital Signs Temp 98.4 F 01/18/18 07:44 Pulse 94 H 01/18/18 07:44 Resp 16 01/18/18 07:44 BP 135/88 01/18/18 07:44 Pulse Ox 98 01/18/18 07:44 - Medical History PMH: Diabetes, HTN Denies: Chronic Kidney Disease, Sexually Transmitted Disease - Surgical History Surgical History: Cholecystectomy - Family History Family History: States: No Known Family Hx - Home Medications Home Medications: Ambulatory Orders Medication Instructions Recorded Diclofenac Sodium [Voltaren] 75 mg PO BID PRN #0 02/22/17 GlipiZIDE [Glucotrol] 10 mg PO ACB #60 tab 02/22/17 Lactobacillus Acidophilus [Bacid 1 cap PO BID #30 cap 02/22/17 Acidophilus] oxyCODONE/Acetaminophen [Percocet 1 tab PO Q6 PRN #20 tab 02/22/17 5/325 mg Tab] tiZANidine [Zanaflex] 4 mg pe PO HS PRN #0 02/22/17 Cefuroxime Axetil [Cefuroxime] 500 mg PO Q12 #28 tablet 02/23/17 Valsartan [Diovan] 80 mg PO DAILY #30 tab 02/23/17 Amoxicillin [Amoxil 500 mg Cap] 500 mg PO TID #30 cap 01/18/18 traMADol [Ultram] 50 mg PO Q8 #10 tab 01/18/18 - Allergies Allergies/Adverse Reactions: Allergies Allergy/AdvReac Type Severity Reaction Status Date / Time No Known Allergies Allergy Verified 02/19/17 14:22 Review of Systems ROS Statement: Except As Marked, All Systems Reviewed And Found Negative Constitutional: Negative for: Fever, Chills ENT: Positive for: Other (right upper dental pain with swelling) Physical Exam - Reviewed Nursing Documentation Reviewed: Yes Vital Signs Reviewed: Yes - Physical Exam Appears: Positive for: Non-toxic, No Acute Distress Head Exam: Positive for: ATRAUMATIC, NORMAL INSPECTION, NORMOCEPHALIC Skin: Positive for: Normal Color, Warm, Dry Eye Exam: Positive for: Normal appearance, EOMI, PERRL ENT: Positive for: Other (right upper molar with caries, swelling in gum but no fluctuance or drainage. Right facial tenderness but no erythema or fluctuance) Neck: Positive for: Painless ROM Extremity: Positive for: Normal ROM (upper and lower extremities). Negative for : Deformity, Swelling Neurologic/Psych: Positive for: Alert, Oriented. Negative for: Motor/Sensory Deficits - ECG O2 Sat by Pulse Oximetry: 98 (RA) Pulse Ox Interpretation: Normal Medical Decision Making Medical Decision Making: Time: 07:48 Initial Impression: dental pain Initial Plan: --Ultram 50 mg PO --Reevaluation 08:05 Upon provider reevaluation patient is feeling better, is medically stable, and requires no further treatment in the ED at this time. Patient will be discharged home with Rx for Amoxicillin and Ultram. Counseling was provided and all questions were answered regarding diagnosis. There is agreement to discharge plan. Return if symptoms persist or worsen. ----- Scribe Attestation: Documented by Artie Rivera, acting as a scribe for Cameron Panchal MD. Provider Scribe Attestation: All medical record entries made by the Scribe were at my direction and personally dictated by me. I have reviewed the chart and agree that the record accurately reflects my personal performance of the history, physical exam, medical decision making, and the department course for this patient. I have also personally directed, reviewed, and agree with the discharge instructions and disposition. Disposition - Clinical Impression Clinical Impression: Dental caries - Patient ED Disposition Is Patient to be Admitted: No Counseled Patient/Family Regarding: Diagnosis, Need For Followup, Rx Given - Disposition Referrals: Urbano Baez DDS [Staff Provider] - Disposition: Routine/Home Disposition Time: 08:05 Condition: FAIR Prescriptions: Amoxicillin [Amoxil 500 mg Cap] 500 mg PO TID #30 cap traMADol [Ultram] 50 mg PO Q8 #10 tab Instructions: Dental Pain (DC) Forms: [facility] (Panamanian) Print Language: BAHAMIAN
[2018-01-18 09:15] VITALS: BP 122/77; PULSE 81; RESP 14; TEMP 98; O2SAT 99
== END 2018-01-18 09:16 | disposition home or self-care (01) ==
LOC: H.ER 07:37
DX: K02.9 Dental caries, unspecified (principal)

== ENCOUNTER 2018-12-11 20:20 | Emergency (ER) | payer SELFPAY ==
[2018-12-11 20:20] VITALS: BMI 39.1
[2018-12-11 20:26] VITALS: O2SAT 99
[2018-12-11] MEDS ORDERED: Sodium Chloride 0.9% 1,000 ML IV STA (22:11)
[2018-12-11 22:38] LABS: BASO % 0.6 % (0.0-2.0); EOS % 0.5 % (0.0-4.0); HEMOGLOBIN 13.8 g/dL (12.0-18.0); LYMPH # 1.3 K/uL (1.0-4.3); LYMPH % 18.8 % (20.0-40.0); MEAN CELL VOLUME 89.2 fl (80.0-94.0); MEAN CORPUSCULAR HEMOGLOBIN 31.1 pg (27.0-31.0); MEAN CORPUSCULAR HGB CONC 34.8 g/dL (33.0-37.0); MEAN PLATELET VOLUME 7.4 fl (7.2-11.7); MONO # 0.5 K/uL (0.0-0.8); MONO % 7.2 % (0.0-10.0); NEUT % 72.9 % (50.0-75.0); NRBC % 0.1 % (0.0-0.0); RBC 4.43 Mil/uL (4.40-5.90); RED CELL DISTRIBUTION WIDTH 12.7 % (11.5-14.5); WHITE BLOOD COUNT 6.9 K/uL (4.8-10.8)
[2018-12-11 22:48] LABS: ALB/GLOB RATIO 1.2 (1.0-2.1); ALBUMIN 3.9 g/dL (3.5-5.0); ALT/SGPT 76 U/L (21-72); AST/SGOT 41 U/L (17-59); BLOOD UREA NITROGEN 16 mg/dl (9-20); CALCIUM 8.8 mg/dL (8.4-10.2); GFR NON-AFRICAN AMERICAN > 60
--- NOTE | 2018-12-11 22:56 | ED PDOC ---
HPI: General Adult Time Seen by Provider: 12/11/18 21:00 Chief Complaint (Nursing): Headache Chief Complaint (Provider): Headache History Per: Patient, Family (Son acting as preferred manager college) History/Exam Limitations: no limitations Onset/Duration Of Symptoms: Persistent Current Symptoms Are (Timing): Still Present Additional Complaint(s): 58 year old male with a history of HTN and new diagnosis of diabetes presents to the ED with multiple complaints: headache, body pain, upper abdominal pain, left leg pain and subjective fever. Denies recent trauma, falls, vomiting and diarrhea. PMD: none provided Past Medical History Reviewed: Historical Data, Nursing Documentation, Vital Signs Vital Signs: Last Vital Signs Temp 98 F 12/11/18 20: Pulse 76 12/11/18 20:26 Resp 16 12/11/18 20:26 BP 117/77 12/11/18 20: Pulse Ox 99 12/11/18 20:26 Primary Care Provider: FAMILY PROVIDER,NO - Medical History PMH: Diabetes, HTN Denies: Chronic Kidney Disease, Sexually Transmitted Disease - Surgical History Surgical History: Cholecystectomy - Family History Family History: States: Unknown Family Hx - Social History Ex-Smoker (has not smoked in the last 12 months): Yes - Home Medications Home Medications: Ambulatory Orders Medication Instructions Recorded Diclofenac Sodium [Voltaren] 75 mg PO BID PRN #0 02/22/17 GlipiZIDE [Glucotrol] 10 mg PO ACB #60 tab 02/22/17 Lactobacillus Acidophilus [Bacid 1 cap PO BID #30 cap 02/22/17 Acidophilus] oxyCODONE/Acetaminophen [Percocet 1 tab PO Q6 PRN #20 tab 02/22/17 5/325 mg Tab] tiZANidine [Zanaflex] 4 mg pe PO HS PRN #0 02/22/17 Cefuroxime Axetil [Cefuroxime] 500 mg PO Q12 #28 tablet 02/23/17 Valsartan [Diovan] 80 mg PO DAILY #30 tab 02/23/17 Amoxicillin [Amoxil 500 mg Cap] 500 mg PO TID #30 cap 01/18/18 traMADol [Ultram] 50 mg PO Q8 #10 tab 01/18/18 MetFORMIN [glucoPHAGE] 500 mg PO BID #14 tab 12/12/18 - Allergies Allergies/Adverse Reactions: Allergies Allergy/AdvReac Type Severity Reaction Status Date / Time No Known Allergies Allergy Verified 12/11/18 20:25 Review of Systems ROS Statement: Except As Marked, All Systems Reviewed And Found Negative Constitutional: Positive for: Fever, Other (body pain) Gastrointestinal: Positive for: Abdominal Pain. Negative for: Nausea, Vomiting, Diarrhea Musculoskeletal: Positive for: Leg Pain Neurological: Positive for: Headache Physical Exam - Reviewed Nursing Documentation Reviewed: Yes Vital Signs Reviewed: Yes - Physical Exam Appears: Positive for: Non-toxic, No Acute Distress Head Exam: Positive for: ATRAUMATIC, NORMAL INSPECTION, NORMOCEPHALIC Skin: Positive for: Normal Color, Warm, Dry Eye Exam: Positive for: EOMI, Normal appearance, PERRL ENT: Positive for: Normal ENT Inspection Neck: Positive for: Normal, Painless ROM, Supple Cardiovascular/Chest: Positive for: Regular Rate, Rhythm. Negative for: Murmur Respiratory: Positive for: Normal Breath Sounds. Negative for: Respiratory Distress Gastrointestinal/Abdominal: Positive for: Normal Exam, Soft. Negative for: Tenderness, Mass, Guarding Back: Positive for: Normal Inspection. Negative for: L CVA Tenderness, R CVA Tenderness Extremity: Positive for: Normal ROM (x 4). Negative for: Calf Tenderness, Deformity, Swelling Neurological/Psych: Positive for: Awake, Alert, Normal Tone - Laboratory Results Result Diagrams: 12/11/18 22:35 12/11/18 22:35 Lab Results: Total Bilirubin 1.0 mg/dl (0.2-1.3) 12/11/18 22:35 AST 41 U/L (17-59) 12/11/18 22:35 ALT 76 U/L (21-72) H 12/11/18 22:35 Alkaline Phosphatase 189 U/L (38-126) H 12/11/18 22:35 Total Protein 7.1 G/DL (6.3-8.2) 12/11/18 22:35 Albumin 3.9 g/dL (3.5-5.0) 12/11/18 22:35 Globulin 3.3 gm/dL (2.2-3.9) 12/11/18 22:35 Albumin/Globulin Ratio 1.2 (1.0-2.1) 12/11/18 22:35 - ECG O2 Sat by Pulse Oximetry: 99 (RA) Pulse Ox Interpretation: Normal Medical Decision Making Medical Decision Makin:11 Impression: multiple body complaints/pain, r/o influenza, electrolyte abnormality, other infection --CT Head --CMP --CBC --NS IV 1,000 mls --Reglan 10mg IVP --Influenza AB 2333 FINDINGS: BRAIN: Left frontal encephalomalacia, likely post surgical. VENTRICLES: No hydrocephalus. ORBITS: The orbits are unremarkable. SINUSES AND MASTOIDS: The paranasal sinuses and mastoid air cells are clear. BONES: S/p left frontal craniotomy. SOFT TISSUES: Unremarkable. IMPRESSION: 1. S/p left frontal craniotomy. 2. Left frontal encephalomalacia, likely post surgical. 3. No acute pathology. 235 sugar elevated 267, anion gap normal, flu negative, rest of labs benign 235 Patient is medically stable and feels improved and ready for discharge 0014 Upon discussion with patient and family, patient states he needed brain surgery 30 years ago and that explains the CT report Metformin for diabetes ran out as per pt, patient instructed that he must make appointment for outpatient followup, patient and son both aware ---- Scribe Attestation: Documented by Sheree Boyce, acting as a scribe for Tanvi Estevez MD. Provider Scribe Attestation: All medical record entries made by the Scribe were at my direction and personally dictated by me. I have reviewed the chart and agree that the record accurately reflects my personal performance of the history, physical exam, medical decision making, and the department course for this patient. I have also personally directed, reviewed, and agree with the discharge instructions and disposition. Disposition - Clinical Impression Clinical Impression: Generalized body aches, Hyperglycemia - Patient ED Disposition Is Patient to be Admitted: No Counseled Patient/Family Regarding: Studies Performed, Diagnosis, Need For Followup - Disposition Referrals: [facility] [Outside] [facility] [Outside] [facility] [Outside] Disposition: Routine/Home Disposition Time: 23:30 Condition: IMPROVED Additional Instructions: sigues en la clnica esta semana sin falta volver a la ED con cualquier empeoramiento o en relacin con los sntomas Prescriptions: MetFORMIN [glucoPHAGE] 500 mg PO BID #14 tab Instructions: Type 2 Diabetes, Hyperglycemia, Adult Forms: goBramble (South Korean), goBramble ([place] Islander) Print Language: KYRGYZ
[2018-12-12 00:46] VITALS: BP 134/82; PULSE 85; RESP 18; TEMP 99.1
--- NOTE | 2018-12-12 09:50 | CT ---
Date of service: 12/11/2018 PROCEDURE: CT HEAD WITHOUT CONTRAST. HISTORY: headache COMPARISON: None available. TECHNIQUE: Axial computed tomography images were obtained through the head/brain without intravenous contrast. Radiation dose: Total exam DLP = 828.07 mGy-cm. This CT exam was performed using one or more of the following dose reduction techniques: Automated exposure control, adjustment of the mA and/or kV according to patient size, and/or use of iterative reconstruction technique. FINDINGS: HEMORRHAGE: No definitive intracranial hemorrhage. BRAIN: A large 3.1 x 3.7 cm area of relative hypodensity in the left frontal lobe subjacent to a large left frontal craniectomy is noted. Postsurgical left frontal encephalomalacia changes is inferred. However correlation is needed in terms of patient's detailed neuro surgical history-no comparison studies are available. VENTRICLES: Unremarkable. No hydrocephalus. CALVARIUM: Left frontal craniectomy PARANASAL SINUSES: Unremarkable as visualized. No significant inflammatory changes. MASTOID AIR CELLS: Unremarkable as visualized. No inflammatory changes. OTHER FINDINGS: None. IMPRESSION: No definitive intracranial hemorrhage. Inferred large left frontal lobe encephalomalacia changes subjacent to a large left frontal craniectomy.Postsurgical left frontal encephalomalacia changes is inferred. However correlation is needed in terms of patient's detailed neuro surgical history-no comparison studies are available. Concordant results (preliminary interpretation) provided by [employer].
== END 2018-12-12 01:00 | disposition home or self-care (01) ==
LOC: H.ER 20:20
DX: E11.65 Type 2 diabetes mellitus with hyperglycemia (principal); Z79.84 Long term (current) use of oral hypoglycemic drugs; M79.10 Myalgia, unspecified site; I10 Essential (primary) hypertension
CPT/HCPCS: 70450; 80053; 85025; 87804; 96361; 96374; 99285; J2765; J7030